=== PATIENT | female | born 1955 | race Caucasian/White ===

== ENCOUNTER 2018-08-08 04:47 | Inpatient (IN) ==
--- NOTE | 2018-07-11 16:12 | PAT Medication Instructions ---
Medication Instructions Date of Service July 11, 2018 Home Medications alprazolam [Xanax] 0.5 mg PO BID PRN aripiprazole [Abilify] 10 mg PO QAM oxycodone 15 mg PO QID sertraline [Zoloft] 200 mg PO HS Take morning of surgery With a small sip of water, OTHERWISE NOTHING TO EAT OR DRINK AFTER MIDNIGHT: alprazolam [Xanax] 0.5 mg PO BID PRN (if needed) aripiprazole [Abilify] 10 mg PO QAM oxycodone 15 mg PO QID (okay to take up to 4 hours prior to surgery if needed) Take evening before surgery alprazolam [Xanax] 0.5 mg PO BID PRN (if needed) oxycodone 15 mg PO QID sertraline [Zoloft] 200 mg PO HS Other Notes If you have any questions please call us at [phone] or [phone] or [phone] or [phone]
--- NOTE | 2018-07-12 09:22 | History & Physical Report ---
Date of Service July 12, 2018 Date of Surgery: 08-08-18 Assessment & Plan (1) Arthritis of knee, right: patient has failed conservative measures, including previous visco injection, she had prior knee arthroscopy in February but pain is now worse, her xrays show complete loss of the joint space medial compartment. is now buckling/giving out. will proceed with right TKA @ [facility] on 08/08/18. all risks and benefits of the procedure were discussed in detail today. History of Present Illness Chief Complaint: right knee pain Primary Care Provider: Emerson Hill DO Ms Mota is a 63 year old female who complains of right knee pain, presents for pre-op evaluation prior to a right total knee replacement at [facility]. she states that the symptoms have been chronic non-traumatic. The symptoms occur intermittently but have become worse. Currently the patient states that the symptoms are moderate-severe. The pain is described as sharp and stabbing. She rates her current pain as 8/10. The symptoms are aggravated by daily activities, first steps while awake, kneeling, movement, sleeping in any position, walking and standing. Lacy states that the symptoms are relieved by no specific activity. she has had prior viscosupplementation, cortisone injection as well as prior knee arthroscopy, Right knee arthroscopic partial medial meniscectomy, Chondroplasty medial femoral condyle and patellofemoral joint. Allergies Allergy/AdvReac Type Severity Reaction Status Date / Time No Known Allergies Allergy Verified 07/04/18 10:35 Home Medications Home Medications Medication Instructions Recorded Confirmed Type alprazolam [Xanax] 0.5 mg PO BID PRN 07/04/18 07/04/18 History aripiprazole [Abilify] 10 mg PO QAM 07/04/18 07/04/18 History oxycodone 15 mg PO QID 07/04/18 07/04/18 History sertraline [Zoloft] 200 mg PO HS 07/04/18 07/04/18 History Past Med/Surg History Medical History Anxiety Depression History of cardiac arrhythmia PT STATES SHE WAS HAVING SOME "SYNCOPAL-LIKE SYMPTOMS" APPROX 3 YEARS AGO. PT HAD A LOOP RECORDER PLACED WHICH DETECTED 2 "VERY SHORT PAUSES" AND NOTHING SINCE. PT FOLLOWS WITH ASHELY BISWAS YEARLY IN CARDIO. Kidney stones Morbid obesity Osteoarthritis Sleep apnea CPAP Surgical History History of arthroscopy KNEE RIGHT (2), LEFT (1) History of hysterectomy History of lithotripsy History of loop recorder 2016. HX OF "PAUSES". NO ISSUES SINCE. History of partial nephrectomy AGE 14. PT HAD POLYNEPHRITIS. Family History Unknown Heart disease Social History Preferred Language: Thai Communication Ability: Effective Team Guide Required: No Beliefs That Will Affect Care: None Current Living Situation: Alone Other Information That Helps Us Care for You: No Feels Safe at Home: Yes Safety Concerns: Feels Safe At This Time Smoking Status: Never smoker Cigarettes Per Day: 0 Do You Dip or Chew Tobacco: No Second Hand Exposure: No Tobacco Cessation Education Requested by Patient: No Hx Alcohol Use: No Hx Substance Use: No Review of Systems Review of Systems: All systems reviewed & are unremarkable except as noted in HPI & below Constitutional: no fever, no chills and no body aches Respiratory: no cough and no dyspnea Cardiovascular: no chest pain, no dyspnea and no orthopnea Gastrointestinal: no abdominal pain, no nausea and no vomiting Musculoskeletal: as per Subjective / HPI Integumentary: no rash and no lesions Physical Exam Physical Exam: Ht: 5ft Wt: 101.7kg BP: 86 Pulse: 82 Constitutional: WD/WN, vitals as above no acute distress Respiratory: normal respiratory effort, lungs clear to auscultation no respiratory distress, no labored breathing and does not use accessory muscles Cardiovascular: RRR, no murmur, no edema Gastrointestinal (Abdomen): normal bowel sounds, soft, nontender, no hepatosplenomegaly Musculoskeletal: Right Knee Exam ambulates with a limp, overall varus alignment, no atrophy or ecchymosis, mild effusion, diffuse tenderness to the knee greatest over medial compartment, negative patellar apprehension , mild crepitation with motion, Patella position neutral, pop's negative, Tiny's - lateral positive, Tiny's - medial positive, Posterior drawer- negative, anterior drawer negative, valgus stress negative, varus stress negative, no extensor lag, pain with active range of motion, less pain with passive painful ROM, Range of motion 0/5/115. No pain with active/passive ROM of ankle. Lower extremity strength normal. Lower extremity neuro-vascular is normal Results & Data Diagnostic Findings Right Knee X-ray on 04/24/18 showing advanced degenerative changes to the right knee, narrowing of the medial compartment and patello-femoral joint with patellar spurring noted, findings showing joint space narrowing of the medial compartment and patello-femoral joint, osteophyte formation and subchondral sclerosis noted. overall varus alignment. no acute bony pathology noted.
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
--- NOTE | 2018-07-12 12:42 | XRay Report ---
XR chest Pre-admission PA/Lat CLINICAL HISTORY: pat preoperative evaluation COMPARISON STUDY: No previous studies for comparison. FINDINGS: The bones soft tissues and hemidiaphragms are normal. The cardiomediastinal silhouette is n ormal. The lungs are clear. The pulmonary vasculature is normal. IMPRESSION: Negative chest. The above report was generated using voice recognition software. It may contain grammatical, syntax or spelling errors. Electronically signed by: Aubrey Enriquez M.D. 07/12/2018 12:41 PM
[2018-07-12 12:52] LABS: Basophils # (auto) 0.02 K/uL (0-0.2); Basophils % (auto) 0.3 %; Eosinophils % (auto) 6.4 %; Hematocrit (blood only) 39.7 % (37-47); Hemoglobin 13.4 g/dL (12.0-16.0); Immature Granulocytes # (auto) 0.01 K/uL (0.00-0.02); Immature Granulocytes % (auto) 0.2 %; Lymphocytes # (auto) 1.82 K/uL (1.2-3.4); Lymphocytes % (auto) 28.9 %; Mean Corpuscular Hgb Conc 33.8 g/dL (32-36); Mean Corpuscular Volume 90.4 fL (80-100); Mean Platelet Volume 9.7 fL (7.4-10.4); Monocytes # (auto) 0.39 K/uL (0.11-0.59); Monocytes % (auto) 6.2 %; Neutrophils # (auto) 3.65 K/uL (1.4-6.5); Platelet Count 218 K/uL (130-400); RDW Coefficient of Variation 13.4 % (11.5-14.5); RDW Standard Deviation 44.2 fL (36.4-46.3); Red Blood Count 4.39 M/uL (4.2-5.4); White Blood Count 6.29 K/uL (4.8-10.8)
[2018-07-12 12:56] LABS: Appearance Urine Clear (Clear); Bacteria Urine Automated Negative (Negative); Bilirubin Urine Negative (Negative); Blood Urine Trace (Negative); Cast Urine Automated 0 /lpf (0-5); Color Urine Yellow; Glucose Urine UA Negative (Negative); Ketones Urine Negative (Negative); Leukocyte Esterase Urine 1+ (Negative); Nitrite Urine Negative (Negative); Protein Urine Negative (Negative); RBC Urine Automated 0-4 /hpf (0-4); Specific Gravity Urine 1.011 (1.000-1.030); Urobilinogen Urine Negative (Negative)
[2018-07-12 13:07] LABS: Partial Thromboplastin Time 26.3 Seconds (21.0-31.0); Prothrombin Time 9.8 Seconds (9.0-12.0)
[2018-07-12 13:11] LABS: Albumin Level 3.8 gm/dl (3.4-5.0); BUN Creatinine Ratio 14.5 (10-20); Calcium 9.1 mg/dl (8.5-10.1); Creatinine Clr Calc Pharmacy 59.1 ml/min; Est GFR (African American) 65.2; Est GFR (Non-African American) 56.2; Potassium 4.5 mmol/L (3.5-5.1)
[2018-07-12 13:44] LABS: Estimated Average Glucose 126 mg/dl
[2018-08-08] MEDS ORDERED: CEFAZOLIN 2000MG 2,000 MG/15 ML SYR IV SCH (06:00)
[2018-08-08] MEDS ORDERED: dexAMETHasone 4 MG TAB PO SCH (06:00)
[2018-08-08] MEDS ORDERED: GABAPENTIN 300 MG x 2 PO SCH (06:00)
[2018-08-08] MEDS ORDERED: METOCLOPRAMIDE HCL 10 MG TABLET PO SCH (06:00)
[2018-08-08] MEDS ORDERED: CeleBREX 200 MG CAP PO SCH (06:00)
[2018-08-08] MEDS ORDERED: LR 500ML BOLUS, THEN 15ML/HR IV SCH (06:00)
[2018-08-08] MEDS ORDERED: FAMOTIDINE 20 MG TAB PO SCH (06:00)
[2018-08-08] MEDS ORDERED: ACETAMINOPHEN 500 MG TAB PO SCH (06:00)
[2018-08-08] MEDS ORDERED: ROPIVACAINE 0.5% HCL/PF 150 MG, BUPIVACAINE 0.5% MPF 30 ML, EPINEPHrine 30MG/30ML (OR U... INFIL SCH (06:00)
[2018-08-08] MEDS ORDERED: TRANEXAMIC ACID 1,000 MG **IV Pre-op IV SCH (06:00)
[2018-08-08] MEDS ORDERED: ROPIVACAINE 0.5% 5 MG/ML 30 ML VIAL ONE (06:27)
[2018-08-08] MEDS ORDERED: BUPIVACAINE 0.5 % 5 MG/1 ML PF 10ML VIAL ONE (06:27)
[2018-08-08] MEDS ORDERED: TRANEXAMIC ACID 1,000 MG **IV Intra-op IV SCH (06:30)
[2018-08-08] MEDS ORDERED: fentaNYL citrate 100 MCG/2 ML VIAL ONE ×2 (06:30→09:02)
[2018-08-08] MEDS ORDERED: MIDAZOLAM HCL 1 MG/ML 2ML VIAL ONE ×3 (06:30→09:01)
[2018-08-08] MEDS ORDERED: LIDOCAINE HCL 2% 2 ML VIAL/AMP(20MG/ML) INFIL ONE (06:34)
[2018-08-08] MEDS ORDERED: PROPOFOL IV EMULSION 10 MG/ML 20 ML VIAL IV ONE ×2 (06:35→09:07)
[2018-08-08] MEDS ORDERED: ONDANSETRON INJ 2 MG/ML 2 ML VIAL ONE (06:35)
[2018-08-08] MEDS ORDERED: fentaNYL citrate 100 MCG/2 ML VIAL IV PRN (06:40)
[2018-08-08] MEDS ORDERED: ePHEDrine sulfate 50 MG/ML AMP IV PRN (06:40)
[2018-08-08] MEDS ORDERED: ONDANSETRON INJ 2 MG/ML 2 ML VIAL IV PRN (06:40)
[2018-08-08] MEDS ORDERED: ATROPINE SULFATE 0.1 MG/ML 10ML SYR IV PRN (06:40)
[2018-08-08] MEDS ORDERED: ORTHO JOINT ANESTHETIC ONE (06:42)
[2018-08-08] MEDS ORDERED: BACITRACIN INJ 50,000 UNIT VIAL ONE (06:43)
--- NOTE | 2018-08-08 07:00 | History & Physical Bridge Note ---
Date of Service August 08, 2018 History & Physical Bridge Note I have examined the patient, reviewed the History & Physical and in the interval since the performance of the History & Physical I have noted the following changes of clinical significance: no changes noted
[2018-08-08] MEDS ORDERED: POVIDONE-IODINE OP SOLN 30 ML BTL OP SCH (08:15)
--- NOTE | 2018-08-08 08:17 | Operative Report ---
Post Operative Report Pre & Post Diagnosis Operation Date: 08/08/18 07:00 Pre-Op Diagnosis: Unilateral Primary Osteoarthritis, Right Knee Post-Op Diagnosis: Unilateral Primary Osteoarthritis, Right Knee Procedure Operation Date: 08/08/18 07:00 Actual Procedures p Right Total Knee Arthroplasty(Right) utilizing Martinez & Nephew non-block journey 2 total knee arthroplasty size 3 femur size 3 tibia size 10 polyethylene size 29 oval patella- Kirk Ott DO Surgeon Kirk Ott DO Nursing Care Partner Aubrey ROGERS Estimated Blood Loss 5 Findings Consistent with Post-Op Diagnosis Patient presents with severe end-stage tricompartmental degenerative joint disease varus alignment subchondral sclerosis marginal osteophytes cystic changes moderate to large effusion with varus alignment right knee no response to conservative management Specimens Bone and cartilage Drains Bone and cartilage Complications none Disposition Accompanied Patient To Recovery: No Disposition: Recovery Room Indications Patient presents with ongoing complaints of pain no response to conservative management physical therapy anti-inflammatories relative rest activity modification corticosteroid injection Visco supplementation bracing patient's intraoperative findings as noted above were confirmed times surgery. Description of Procedure After proper prepping and draping of the Right lower extremity anterior midline incision was made over the region of the extensor extensor mechanism after meticulous hemostasis was obtained and maintained in subcutaneous tissues a medial parapatellar incision was made The patella was subluxed lateralward the medial lateral gutter were cleaned from any hypertrophic synovitis and scar tissue of the distal femoral block was placed and the distal femoral osteotomy cut was made subsequently the chamfers anterior and posterior osteotomy cuts were made utilizing the 4-in-1 block the tibia was subsequently subluxed anteri orward medial and ateral meniscal remnants were excised in their entirety remnants of the anterior and posterior cruciate ligaments were excised in their entirety excellent exposure of the proximal tibia was obtained the tibial osteotomy guide was placed on the proximal tibial osteotomy cut was made once again the knee was irrigated with copious amounts of sterile saline solution the patella was subsequently everted lateralward thickened scar tissue around the patella was removed the patella was subsequently cut utilizing a freehand technique and was drilled prepared for final preparation and placement of patella socially flexion-extension gaps were checked and the equal and symmetric trials were placed to the appropriate femoral and tibial trials with poly-spacer being placed for equal flexion and extension gaps and full range of motion including extension to 0 and flexion to 140 the trial components after having been taken to recovery range of motion was subsequently removed meticulous hemostasis was obtained and maintained subsequently a knee block injection of joint cocktail including ropivacaine 0.5% 150 mg. Bupivacaine 0.5% epinephrine 1-200,030 mL's toradol 30 mg dexamethasone 4 mg ketamine 10 mg clonidine 100 micrograms normal saline solution 30 mg was infiltrated into the soft tissues of the posterior knee medial lateral gutters and periosteal synovium special atten tion was paid to protect neurovascular structures at all times subsequently trial components having been removed the knee was irrigated with sterile saline solution. debris was removed the proximal tibia was subsequently prepared and was made ready for the placement of the tibial component tibial component was also cemented and tamped into position the femoral component was subsequently placed and cemented in the position the patellar component was subsequently cemented in position because hemostasis once again obtained and maintained wound having been thoroughly irrigated with debridement and debridement lavage was performed as well as a medial parapatellar incision closed with #1 Vicryl in interrupted fashion subcutaneous was closed with #2 Vicryl skin was closed with skin clips. PA-C was necessary for prepping and drapping as well as wound closure of deep fascia Sub cutaneous tissue and skin and was necessary for the case. A sterile compressive dressing was placed patient was taken to recovery in stable condition of report dictated by Tru I attest to the content of the Intraoperative Record and any orders documented therein. Any exceptions are noted below. I attest to the content of the Intraoperative Record and any orders documented therein. Any exceptions are noted below.
[2018-08-08] MEDS ORDERED: POVIDONE-IODINE OP SOLN 30 ML BTL OP ONE (08:30)
[2018-08-08] MEDS ORDERED: EPINEPHrine INJ 1 MG/ML AMP ONE (09:07)
[2018-08-08] MEDS ORDERED: PHENYLEPHRINE 100MCG/ML 5ML SYR ONE (09:07)
--- NOTE | 2018-08-08 09:25 | Anesthesiology Progress Note ---
Date of Service August 08, 2018 Anesthesia Post Procedure Vital Signs Vital Signs: Temp Pulse Resp BP Pulse Ox 08/08/18 09:15 75 15 109/71 94 08/08/18 09:05 77 16 112/63 95 08/08/18 08:55 98.1 F 78 20 126/67 100 08/08/18 05:31 98.1 F 90 20 144/85 H 95 Transfer of Care Handoff Completed per policy Notes Mental Status: alert / awake / arousable and participated in evaluation Patient Amnestic to Procedure: Yes Nausea / Vomiting: adequately controlled Pain: adequately controlled Airway Patency, RR, SpO2: stable & adequate BP & HR: stable & adequate Hydration State: stable & adequate Neuraxial Anesthesia: was administered and sensory block is resolving Anesthetic Complications: no major complications apparent and Pt Satisfied with anesthetic care
--- NOTE | 2018-08-08 09:31 | XRay Report ---
XR knee RT 2V routine CLINICAL HISTORY: 63 years-old Female presenting with Surgical Post Op. TECHNIQUE: Frontal and crosstable lateral views the right knee were obtained. COMPARISON: None. FINDINGS: Postsurgical changes of total right knee arthroplasty with patellar resurfacing. Expected intra-artic ular and surrounding soft tissue emphysema. A surgical drain is in place. No periprosthetic lucency o r fracture. Alignment is acceptable. Suboptimal visualization of the patellar arthroplasty component due to positioning of the crosstable lateral view. IMPRESSION: Expected postsurgical appearance status post total right knee arthroplasty with patellar resurfacing. Electronically signed by: Sean Vyas M.D. 08/08/2018 9:30 AM
[2018-08-08] MEDS ORDERED: MAGNESIUM HYDROXIDE SUSP 30 ML UDC PO PRN (10:09)
[2018-08-08] MEDS ORDERED: METOCLOPRAMIDE HCL INJ 5 MG/ML 2 ML VIAL IV PRN (10:09)
[2018-08-08] MEDS ORDERED: ALUMINUM/MAGNESIUM SUSP 30 ML UDC PO PRN (10:09)
[2018-08-08] MEDS ORDERED: NALOXONE HCL 0.4 MG/1 ML VIAL/CARP IV PRN (10:09)
[2018-08-08] MEDS ORDERED: BISACODYL 10 MG SUPP PR PRN (10:09)
[2018-08-08] MEDS: SODIUM CHLORIDE 0.9% 1000ML 1,000 ML IV SCH ×2 (11:04→22:36)
[2018-08-08] MEDS: KETOROLAC TROMETHAMINE 15 MG/ML VIAL IV SCH ×3 (11:30→22:38)
[2018-08-08] MEDS: ASPIRIN 81 MG ECTAB PO SCH ×2 (11:30→20:27)
[2018-08-08] MEDS: CEFAZOLIN 2000MG 2,000 MG/15 ML SYR IV SCH ×2 (14:09→22:37)
[2018-08-08] MEDS: ACETAMINOPHEN 500 MG TAB PO SCH ×2 (14:09→21:03)
[2018-08-08] MEDS: ONDANSETRON INJ 2 MG/ML 2 ML VIAL IV PRN ×2 (15:36→23:17)
[2018-08-08] MEDS: OXYCODONE HCL IR 5 MG TAB (IMMEDIATE RELEASE) PO PRN (17:21)
[2018-08-08] MEDS: HYDROmorphone INJ 1 MG/ML SYRINGE IV PRN (18:32)
[2018-08-08] MEDS: SERTRALINE HCL 100 MG TABLET PO SCH (20:27)
[2018-08-08] MEDS: SENNA 8.6 MG TAB PO SCH (20:28)
[2018-08-08] MEDS: DOCUSATE SODIUM 100 MG CAP PO SCH (20:28)
[2018-08-09] MEDS: OXYCODONE HCL IR 5 MG TAB (IMMEDIATE RELEASE) PO PRN ×4 (03:22→20:59)
[2018-08-09] MEDS: ACETAMINOPHEN 500 MG TAB PO SCH ×3 (05:49→20:59)
[2018-08-09] MEDS: KETOROLAC TROMETHAMINE 15 MG/ML VIAL IV SCH (05:49)
[2018-08-09 05:51] LABS: Hematocrit (blood only) 35.5 % (37-47); Hemoglobin 11.6 g/dL (12.0-16.0); Mean Corpuscular Hgb Conc 32.7 g/dL (32-36); Mean Corpuscular Volume 91.3 fL (80-100); Mean Platelet Volume 9.3 fL (7.4-10.4); Platelet Count 165 K/uL (130-400); RDW Coefficient of Variation 13.5 % (11.5-14.5); RDW Standard Deviation 44.9 fL (36.4-46.3); Red Blood Count 3.89 M/uL (4.2-5.4); White Blood Count 9.57 K/uL (4.8-10.8)
[2018-08-09 06:25] LABS: BUN Creatinine Ratio 18.4 (10-20); Calcium 8.7 mg/dl (8.5-10.1); Creatinine Clr Calc Pharmacy 55.9 ml/min; Est GFR (African American) 62.3; Est GFR (Non-African American) 53.8; Potassium 4.1 mmol/L (3.5-5.1)
--- NOTE | 2018-08-09 07:20 | Anesthesiology Progress Note ---
Date of Service August 09, 2018 Anesthesia Post Procedure Vital Signs Vital Signs: Temp Pulse Pulse Pulse Pulse Resp BP 08/09/18 03:05 36.5 C 71 16 106/69 08/08/18 22:56 36.3 C L 60 16 114/71 08/08/18 21:02 68 113/69 08/08/18 20:30 36.3 C L 64 20 94/55 L 08/08/18 15:32 36.4 C L 68 20 132/88 08/08/18 12:57 36.4 C L 77 16 118/68 08/08/18 11:48 36.5 C 74 16 119/74 08/08/18 10:44 36.5 C 78 16 142/73 H 08/08/18 10:22 36.7 C 70 16 120/73 08/08/18 09:50 36.8 C 78 16 121/63 08/08/18 09:35 37.5 C 76 20 112/75 08/08/18 09:25 37.5 C 74 22 117/73 08/08/18 09:15 75 15 109/71 08/08/18 09:05 77 16 112/63 08/08/18 08:55 36.7 C 78 20 126/67 Pulse Ox 08/09/18 03:05 94 08/08/18 22:56 92 08/08/18 21:02 08/08/18 20:30 93 08/08/18 15:32 96 08/08/18 12:57 96 08/08/18 11:48 96 08/08/18 10:44 96 08/08/18 10:22 95 08/08/18 09:50 95 08/08/18 09:35 94 08/08/18 09:25 94 08/08/18 09:15 94 08/08/18 09:05 95 08/08/18 08:55 100 Pain Intensity Right Knee: Pain Intensity: 3 Notes Mental Status: alert / awake / arousable and participated in evaluation Nausea / Vomiting: adequately controlled Pain: adequately controlled Airway Patency, RR, SpO2: stable & adequate BP & HR: stable & adequate Hydration State: stable & adequate Neuraxial Anesthesia: sensory block resolved Anesthetic Complications: Pt Satisfied with anesthetic care
--- NOTE | 2018-08-09 07:40 | Orthopedic Progress Note ---
Date of Service August 09, 2018 Assessment & Plan (1) Arthritis of knee, right: Postop day 1 status post right TKA. PT/OT protocols. Weightbearing as tolerated. DVT prophylaxis with aspirin twice daily, ARIEL Peter. Pain management with acetaminophen, oxycodone, hydromorphone, Toradol. DC planning-patient is planning for home health services upon discharge. Subjective Postop day 1 status post right total knee arthroplasty. Patient is currently lying in bed awake and alert. She states that she is been having some pain control issues through the night. She also states she is been somewhat lightheaded and dizzy. She is not currently dizzy at this time. She is having some pain in the knee. Denies calf tenderness, short shortness of breath, chest pain. No other complaints at this time. Physical Exam Physical Exam: Dressings are clean, dry, and intact. Calves are soft nontender. Neurovascular is intact. Toes are mobile. Hemovac drainage was 125 cc from the previous shift. Results & Data Vital Signs (Past 12 Hours) Vital Signs Temp Pulse Pulse Pulse Resp BP Pulse Ox 08/09/18 07:34 36.6 C 69 16 135/65 94 08/09/18 03:05 36.5 C 71 16 106/69 94 08/08/18 22:56 36.3 C L 60 16 114/71 92 08/08/18 21:02 68 113/69 08/08/18 20:30 36.3 C L 64 20 94/55 L 93 Laboratory Results Laboratory Results WBC 9.57 K/uL (4.8-10.8) 08/09/18 05:32 RBC 3.89 M/uL (4.2-5.4) L 08/09/18 05:32 Hgb 11.6 g/dL (12.0-16.0) L 08/09/18 05:32 Hct 35.5 % (37-47) L 08/09/18 05:32 MCV 91.3 fL (80-100) 08/09/18 05:32 MCH 29.8 pg (25-34) 08/09/18 05:32 MCHC 32.7 g/dL (32-36) 08/09/18 05:32 RDW Std Deviation 44.9 fL (36.4-46.3) 08/09/18 05:32 RDW Coeff of Heather 13.5 % (11.5-14.5) 08/09/18 05:32 Plt Count 165 K/uL (130-400) 08/09/18 05:32 MPV 9.3 fL (7.4-10.4) 08/09/18 05:32 Immature Gran % (Auto) 0.2 % 07/12/18 10:50 Neut % (Auto) 58.0 % 07/12/18 10:50 Lymph % (Auto) 28.9 % 07/12/18 10:50 [place] % (Auto) 6.2 % 07/12/18 10:50 Eos % (Auto) 6.4 % 07/12/18 10:50 Baso % (Auto) 0.3 % 07/12/18 10:50 Immature Gran # (Auto) 0.01 K/uL (0.00-0.02) 07/12/18 10:50 Neut # (Auto) 3.65 K/uL (1.4-6.5) 07/12/18 10:50 Lymph # (Auto) 1.82 K/uL (1.2-3.4) 07/12/18 10:50 [place] # (Auto) 0.39 K/uL (0.11-0.59) 07/12/18 10:50 Eos # (Auto) 0.40 K/uL (0-0.5) 07/12/18 10:50 Baso # (Auto) 0.02 K/uL (0-0.2) 07/12/18 10:50 PT 9.8 Seconds (9.0-12.0) 07/12/18 10:50 INR 1.0 (0.9-1.1) 07/12/18 10:50 APTT 26.3 Seconds (21.0-31.0) 07/12/18 10:50 PTT Ratio 1.0 07/12/18 10:50 Sodium 145 mmol/L (136-145) 08/09/18 05:32 Potassium 4.1 mmol/L (3.5-5.1) 08/09/18 05:32 Chloride 114 mmol/L (98-107) H 08/09/18 05:32 Carbon Dioxide 26 mmol/L (21-32) 08/09/18 05:32 Anion Gap 6.0 (3-11) 08/09/18 05:32 BUN 20 mg/dl (7-18) H 08/09/18 05:32 Creatinine 1.10 mg/dl (0.6-1.2) 08/09/18 05:32 Est Cr Clr Drug Dosing 55.9 ml/min 08/09/18 05:32 Est GFR ( Amer) 62.3 08/09/18 05:32 Est GFR (Non-Af Amer) 53.8 08/09/18 05:32 BUN/Creatinine Ratio 18.4 (10-20) 08/09/18 05:32 Glucose 122 mg/dl (70-99) H 08/09/18 05:32 Estimat Average Glucose 126 mg/dl 07/12/18 10:50 Hemoglobin A1c 6.0 % (4.5-5.6) H 07/12/18 10:50 Calcium 8.7 mg/dl (8.5-10.1) 08/09/18 05:32 Albumin 3.8 gm/dl (3.4-5.0) 07/12/18 10:50 Urine Color Yellow 07/12/18 Unknown Urine Appearance Clear (Clear) 07/12/18 Unknown Urine pH 7.0 (4.5-7.5) 07/12/18 Unknown Ur Specific [place] 1.011 (1.000-1.030) 07/12/18 Unknown Urine Protein Negative (Negative) 07/12/18 Unknown Urine Glucose (UA) Negative (Negative) 07/12/18 Unknown Urine Ketones Negative (Negative) 07/12/18 Unknown Urine Blood Trace (Negative) H 07/12/18 Unknown Urine Nitrite Negative (Negative) 07/12/18 Unknown Urine Bilirubin Negative (Negative) 07/12/18 Unknown Urine Urobilinogen Negative (Negative) 07/12/18 Unknown Ur Leukocyte Esterase 1+ (Negative) H 07/12/18 Unknown Urine WBC (Auto) 1-5 /hpf (0-5) 07/12/18 Unknown Urine RBC (Auto) 0-4 /hpf (0-4) 07/12/18 Unknown U Hyaline Cast (Auto) 0 /lpf (0-5) 07/12/18 Unknown U Epithel Cells (Auto) 5-10 /lpf (0-5) H 07/12/18 Unknown Urine Bacteria (Auto) Negative (Negative) 07/12/18 Unknown Blood Type O Positive 07/12/18 10:50 Antibody Screen NEGATIVE 07/12/18 10:50
[2018-08-09] MEDS: HYDROmorphone INJ 1 MG/ML SYRINGE IV PRN ×4 (07:52→23:05)
[2018-08-09] MEDS: DOCUSATE SODIUM 100 MG CAP PO SCH ×2 (08:27→20:16)
[2018-08-09] MEDS: ARIPiprazole 10 MG TAB PO SCH (08:27)
[2018-08-09] MEDS: MULTIVITAMIN TAB PO SCH (08:27)
[2018-08-09] MEDS: ASPIRIN 81 MG ECTAB PO SCH ×2 (08:27→20:17)
[2018-08-09] MEDS: ONDANSETRON INJ 2 MG/ML 2 ML VIAL IV PRN (10:01)
[2018-08-09] MEDS ORDERED: PROMETHAZINE HCL 25 MG TAB PO PRN (13:39)
[2018-08-09] MEDS ORDERED: MECLIZINE HCL 25 MG TAB PO PRN (14:23)
[2018-08-09] MEDS: SENNA 8.6 MG TAB PO SCH (20:16)
[2018-08-09] MEDS: CeleBREX 200 MG CAP PO SCH (20:17)
[2018-08-09] MEDS: SERTRALINE HCL 100 MG TABLET PO SCH (20:17)
[2018-08-10] MEDS: HYDROmorphone INJ 1 MG/ML SYRINGE IV PRN (03:39)
[2018-08-10] MEDS: ACETAMINOPHEN 500 MG TAB PO SCH ×3 (06:20→21:35)
--- NOTE | 2018-08-10 06:52 | Orthopedic Progress Note ---
Date of Service August 10, 2018 Assessment & Plan (1) Arthritis of knee, right: Postop day 2 status post right TKA. PT/OT protocols. Weightbearing as tolerated. DVT prophylaxis with aspirin twice daily, SCDs, ARIEL turner. Pain management with acetaminophen, oxycodone, hydromorphone, Toradol. DC planning-patient is planning for home health services upon discharge, will recheck after PT today Subjective Postop day 2 status post right total knee arthroplasty. Patient is currently lying in bed awake and alert. Denies calf tenderness, short shortness of breath, chest pain. No other complaints at this time. admits to h/o vertigo; Physical Exam Physical Exam: Vital Signs Temp Pulse Pulse Resp BP Pulse Ox Pulse Ox 08/09/18 23:11 36.7 C 83 16 159/80 H 91 08/09/18 15:24 36.9 C 77 20 130/77 94 08/09/18 11:41 36.4 C L 70 16 116/74 94 08/09/18 11:30 97 08/09/18 07:34 36.6 C 69 16 135/65 94 Intake and Output 08/09/18 08/09/18 08/10/18 14:59 22:59 06:59 Intake Total 500 / 850 250 / 850 100 / 850 Output Total 100 / 300 100 / 300 100 / 300 Balance 400 / 550 150 / 550 0 / 550 Intake: Oral 500 / 850 250 / 850 100 / 850 Output: Drain Output 100 / 300 100 / 300 100 / 300 Right Knee Hem ovac 100 / 300 100 / 300 100 / 300 Other: # Unmeasured Voi ds 1 Constitutional: WD/WN, vitals as above no acute distress Musculoskeletal: NVDI, calf SNT, negative anamaria sign. DP palpable, able to wiggle toes/ankle movement without difficulty. MITA dressing clean dry and intact. expected post-operative bruising noted. Psychiatric: A+Ox3, euthymic affect Results & Data Vital Signs (Past 12 Hours) Vital Signs Temp Pulse Resp BP Pulse Ox 08/09/18 23:11 36.7 C 83 16 159/80 H 91 Laboratory Results Laboratory Results WBC 9.57 K/uL (4.8-10.8) 08/09/18 05:32 RBC 3.89 M/uL (4.2-5.4) L 08/09/18 05:32 Hgb 11.6 g/dL (12.0-16.0) L 08/09/18 05:32 Hct 35.5 % (37-47) L 08/09/18 05:32 MCV 91.3 fL (80-100) 08/09/18 05:32 MCH 29.8 pg (25-34) 08/09/18 05:32 MCHC 32.7 g/dL (32-36) 08/09/18 05:32 RDW Std Deviation 44.9 fL (36.4-46.3) 08/09/18 05:32 RDW Coeff of Heather 13.5 % (11.5-14.5) 08/09/18 05:32 Plt Count 165 K/uL (130-400) 08/09/18 05:32 MPV 9.3 fL (7.4-10.4) 08/09/18 05:32 Immature Gran % (Auto) 0.2 % 07/12/18 10:50 Neut % (Auto) 58.0 % 07/12/18 10:50 Lymph % (Auto) 28.9 % 07/12/18 10:50 [place] % (Auto) 6.2 % 07/12/18 10:50 Eos % (Auto) 6.4 % 07/12/18 10:50 Baso % (Auto) 0.3 % 07/12/18 10:50 Immature Gran # (Auto) 0.01 K/uL (0.00-0.02) 07/12/18 10:50 Neut # (Auto) 3.65 K/uL (1.4-6.5) 07/12/18 10:50 Lymph # (Auto) 1.82 K/uL (1.2-3.4) 07/12/18 10:50 [place] # (Auto) 0.39 K/uL (0.11-0.59) 07/12/18 10:50 Eos # (Auto) 0.40 K/uL (0-0.5) 07/12/18 10:50 Baso # (Auto) 0.02 K/uL (0-0.2) 07/12/18 10:50 PT 9.8 Seconds (9.0-12.0) 07/12/18 10:50 INR 1.0 (0.9-1.1) 07/12/18 10:50 APTT 26.3 Seconds (21.0-31.0) 07/12/18 10:50 PTT Ratio 1.0 07/12/18 10:50 Sodium 145 mmol/L (136-145) 08/09/18 05:32 Potassium 4.1 mmol/L (3.5-5.1) 08/09/18 05:32 Chloride 114 mmol/L (98-107) H 08/09/18 05:32 Carbon Dioxide 26 mmol/L (21-32) 08/09/18 05:32 Anion Gap 6.0 (3-11) 08/09/18 05:32 BUN 20 mg/dl (7-18) H 08/09/18 05:32 Creatinine 1.10 mg/dl (0.6-1.2) 08/09/18 05:32 Est Cr Clr Drug Dosing 55.9 ml/min 08/09/18 05:32 Est GFR ( Amer) 62.3 08/09/18 05:32 Est GFR (Non-Af Amer) 53.8 08/09/18 05:32 BUN/Creatinine Ratio 18.4 (10-20) 08/09/18 05:32 Glucose 122 mg/dl (70-99) H 08/09/18 05:32 Estimat Average Glucose 126 mg/dl 07/12/18 10:50 Hemoglobin A1c 6.0 % (4.5-5.6) H 07/12/18 10:50 Calcium 8.7 mg/dl (8.5-10.1) 08/09/18 05:32 Albumin 3.8 gm/dl (3.4-5.0) 07/12/18 10:50 Urine Color Yellow 07/12/18 Unknown Urine Appearance Clear (Clear) 07/12/18 Unknown Urine pH 7.0 (4.5-7.5) 07/12/18 Unknown Ur Specific [place] 1.011 (1.000-1.030) 07/12/18 Unknown Urine Protein Negative (Negative) 07/12/18 Unknown Urine Glucose (UA) Negative (Negative) 07/12/18 Unknown Urine Ketones Negative (Negative) 07/12/18 Unknown Urine Blood Trace (Negative) H 07/12/18 Unknown Urine Nitrite Negative (Negative) 07/12/18 Unknown Urine Bilirubin Negative (Negative) 07/12/18 Unknown Urine Urobilinogen Negative (Negative) 07/12/18 Unknown Ur Leukocyte Esterase 1+ (Negative) H 07/12/18 Unknown Urine WBC (Auto) 1-5 /hpf (0-5) 07/12/18 Unknown Urine RBC (Auto) 0-4 /hpf (0-4) 07/12/18 Unknown U Hyaline Cast (Auto) 0 /lpf (0-5) 07/12/18 Unknown U Epithel Cells (Auto) 5-10 /lpf (0-5) H 07/12/18 Unknown Urine Bacteria (Auto) Negative (Negative) 07/12/18 Unknown Hepatitis C Ab Screen Neg (Neg) 08/09/18 05:32 Blood Type O Positive 07/12/18 10:50 Antibody Screen NEGATIVE 07/12/18 10:50 Diagnostic Findings XR knee RT 2V routine CLINICAL HISTORY: 63 years-old Female presenting with Surgical Post Op. TECHNIQUE: Frontal and crosstable lateral views the right knee were obtained. COMPARISON: None. FINDINGS: Postsurgical changes of total right knee arthroplasty with patellar resurfacing. Expected intra-articular and surrounding soft tissue emphysema. A surgical drain is in place. No periprosthetic lucency or fracture. Alignment is acceptable. Suboptimal visualization of the patellar arthroplasty component due to positioning of the crosstable lateral view. IMPRESSION: Expected postsurgical appearance status post total right knee arthroplasty with patellar resurfacing.
[2018-08-10] MEDS: OXYCODONE HCL IR 5 MG TAB (IMMEDIATE RELEASE) PO PRN ×4 (07:56→21:34)
[2018-08-10] MEDS: ONDANSETRON INJ 2 MG/ML 2 ML VIAL IV PRN ×2 (07:56→15:55)
[2018-08-10] MEDS: ARIPiprazole 10 MG TAB PO SCH (08:00)
[2018-08-10] MEDS: CeleBREX 200 MG CAP PO SCH ×2 (08:00→21:35)
[2018-08-10] MEDS: DOCUSATE SODIUM 100 MG CAP PO SCH ×2 (08:00→21:34)
[2018-08-10] MEDS: ASPIRIN 81 MG ECTAB PO SCH ×2 (08:00→21:34)
[2018-08-10] MEDS: MULTIVITAMIN TAB PO SCH (08:00)
[2018-08-10] MEDS ORDERED: KETOROLAC TROMETHAMINE 15 MG/ML VIAL IV ONE (14:42)
[2018-08-10] MEDS: ALPRAZolam 0.5 MG TABLET PO PRN (20:32)
[2018-08-10] MEDS: SERTRALINE HCL 100 MG TABLET PO SCH (21:35)
[2018-08-10] MEDS: SENNA 8.6 MG TAB PO SCH (21:35)
[2018-08-11] MEDS: OXYCODONE HCL IR 5 MG TAB (IMMEDIATE RELEASE) PO PRN ×2 (03:50→08:02)
[2018-08-11] MEDS: ACETAMINOPHEN 500 MG TAB PO SCH (05:53)
--- NOTE | 2018-08-11 08:04 | Orthopedic Progress Note ---
Date of Service August 11, 2018 Assessment & Plan (1) Arthritis of knee, right: Postop day 3 status post right TKA. PT/OT protocols. Weightbearing as tolerated. DVT prophylaxis with aspirin twice daily, ARIEL Peter. Pain management with acetaminophen, oxycodone, hydromorphone, Toradol. DC planning-patient is planning for home health services upon discharge. Plan for dc to home. Subjective Postop day 3 status post right total knee arthroplasty. Patient's discharge was held yesterday due to some pain control issues. She was ordered a one-time dose of Toradol 15 mg IV and continued on her regular pain regimen. This morning she is sitting up in her chair at the bedside and appears comfortable. She has no complaints at this time. Pain appears controlled. She denies shortness of breath, chest pain, lightheadedness. We discussed being discharged today and the patient feels she is ready to go home today. Physical Exam Physical Exam: MITA dressing is C/D/I. No overt drainage noted. Continues to function well. Calves are soft,NT. NV intact. Toes are mobile. Results & Data Vital Signs (Past 12 Hours) Vital Signs Temp Pulse Pulse Resp BP Pulse Ox 08/11/18 07:13 36.8 C 81 16 134/87 94 08/10/18 23:01 36.8 C 82 16 129/80 91
[2018-08-11] MEDS: ALPRAZolam 0.5 MG TABLET PO PRN (08:06)
[2018-08-11] MEDS: ARIPiprazole 10 MG TAB PO SCH (08:06)
[2018-08-11] MEDS: CeleBREX 200 MG CAP PO SCH (08:07)
[2018-08-11] MEDS: DOCUSATE SODIUM 100 MG CAP PO SCH (08:07)
[2018-08-11] MEDS: ASPIRIN 81 MG ECTAB PO SCH (08:07)
[2018-08-11] MEDS: MULTIVITAMIN TAB PO SCH (08:08)
--- NOTE | 2018-08-13 07:42 | Discharge Summary ---
Date of Service date of admission: August 08, 2018 date of discharge: 08/11/18 Admission HPI Per Admitting Provider Ms Mota is a 63 year old female who complains of right knee pain, presents for pre-op evaluation prior to a right total knee replacement at [facility]. she states that the symptoms have been chronic non-traumatic. The symptoms occur intermittently but have become worse. Currently the patient states that the symptoms are moderate-severe. The pain is described as sharp and stabbing. She rates her current pain as 8/10. The symptoms are aggravated by daily activities, first steps while awake, kneeling, movement, sleeping in any position, walking and standing. Lacy states that the symptoms are relieved by no specific activity. she has had prior viscosupplementation, cortisone injection as well as prior knee arthroscopy, Right knee arthroscopic partial medial meniscectomy, Chondroplasty medial femoral condyle and patellofemoral joint. Principal Diagnosis right knee osteoarthritis Discharge Exam Vital Signs Temp 36.8 C 08/11/18 09:28 Pulse 76 08/11/18 09:28 Resp 16 08/11/18 09:28 BP 146/84 H 08/11/18 09:28 Pulse Ox 94 08/11/18 09:28 Musculoskeletal NVDI, calf SNT, negative anamaria sign. DP palpable, able to wiggle toes/ankle movement without difficulty. MITA dressing clean dry and intact. expected post- operative bruising noted. Discharge Data Allergies Allergy/AdvReac Type Severity Reaction Status Date / Time No Known Allergies Allergy Verified 08/08/18 05:22 Consultations 08/08/18 10:09 Consult Case Management - Discharge Planning Routine Procedures Performed Operation Date: 08/08/18 07:00 Actual Procedures p Right Total Knee Arthroplasty(Right) - Kirk Ott DO Ordered Studies 08/08/18 05:00 US - OR guided needle placemen Routine Hospital Course (1) Arthritis of knee, right: Postop day 3 status post right TKA. PT/OT protocols. Weightbearing as tolerated. DVT prophylaxis with aspirin twice daily, SCDs, ARIEL turner. Pain management with acetaminophen, oxycodone, hydromorphone, Toradol. DC planning-patient is planning for home health services upon discharge. Plan for dc to home. Total Time Total Time Spent Total Time Spent (In Minutes): 20 Total Time Includes: Examination of the Patient, Discharge Planning and Medication Reconciliation Discharge Plan Discharge Items Patient Disposition: Home - Home Health Services Reason For Visit: Unilateral Primary Osteoarthritis, Right Knee Discharge Diagnosis: right total knee replacement Condition: Good Discharge Goals: Decrease discomfort, Improve function and Increase independence Activity: Per 'Additional Instructions' section Lifting: Wait until after follow-up appointment Driving/Machine Use Comment: wait until cleared by your surgeon Weightbearing: Right weightbearing Weightbearing Comment: WBAT with walker Non-emergency contact: Primary Care Provider and Surgeon Call non-emergency contact if: you have any medication questions, your temperature is above 101, your wound has increased redness and your wound has increased drainage Follow-up/Referrals: Emerson Hill DO [Primary Care Provider] - Diet: Regular Addtl Provider Instructions: ACTIVITY RECOMMENDATIONS: SELF CARE INSTRUCTIONS AFTER TOTAL KNEE REPLACEMENT A. You may need to continue a physical therapy program after discharge from the hospital. There are several options available to you. Your doctor will assist you in selecting the best one for you. 1. An out-patient facility 2 to 3 times a week for therapy or home therapy. 2. Continue working on all exercises taught to you in the hospital. Your goals should be to increase bending of your knee to 90 degrees and beyond and to fully straighten your knee. B. You may progress at your own pace from walking with a walker or crutches to a cane; then to no assistive devices. C. Make walking a part of your daily routine. Be up as much as comfortable with rest periods throughout the day. Rest with leg elevation is very important. Use the ice wrap frequently for the first 3-4 weeks. D. There are no restrictions on activities. You may ride in a car, shop, participate in collections director and all social activities. E. Wear the long elastic stockings (ARIEL hose) 20 hours a day for 2 weeks after surgery. They can be removed several times a day for laundering and for a bath. F. You may shower, no tub baths until cleared by your doctor. SPECIAL CARE INSTRUCTIONS: VERY IMPORTANT TO READ AND REVIEW A. There are a few signs you need to watch for after you are home. Call [facility] if you notice any of the followin. Increased severe knee pain. Some pain is expected especially when you exercise. 2. Increased swelling in your leg or knee; pain or swelling of the calf muscle in either lower leg. 3. Any fluid drainage from the incision. 4. Shortness of breath or chest pain. B. Please call [facility] at if you have any concerns or questions about your operation or recovery. The doctor or his nurse will return your call promptly. C. You must take antibiotics before dental work, bladder, bowel or other surgery. Your doctor will provide you with a permanent care to carry describing this precaution. IMPORTANT: * REMEMBER TO TAKE ASPIRIN, 81 MG, TWICE DAILY FOR 4 WEEKS UNLESS OTHERWISE DIRECTED. THIS IS YOUR BLOOD THINNER. * HIGH RISK PATIENTS MAY BE PRESCRIBED A STRONGER BLOOD THINNER. THIS WILL BE PROVIDED AT DISCHARGE. * CALL IF INCREASED PAIN, REDNESS, DRAINAGE OR FEVER GREATER THAT 101. * WEAR ARIEL HOSE 20 HOURS PER DAY FOR 2 WEEKS. * MITA Dressing- This is a large suction dressing covering your incision. Th is will help pull any excess drainage from the wound and allow your incision to heal properly. You may shower with this if you can keep the unit outside of the shower. If any bleeding or leakage is noted please call your doctor's office. This will remain on your incision for 7 days and then should be removed. This can be done yourself or by the home nursing staff if applicable. The entire uni t is disposable once removed. Once removed, keep incision clean and dry. If redness or drainage is noted, please call your surgeon. DERMABOND Prineo- This is a mesh tape dressing that is covered with glue. It should remain in place until the incision is properly healed, usually 10-14 days. This dressing is designed to naturally slough off. You may trim the excess mesh tape as it peels off. Incision may be briefly wet in a shower. Dry immediately by blotting with a clean, dry towel. Do not bath or swim until instructed by your doctor. Do not scratch, rub, or pick at the dressing. Do not apply any topical ointments or lotions until dressing is completely removed and/or instructed by your doctor. There may be a small piece of suture material at one end of your incision. Do not pull or trim this. If it is bothersome or catching on clothing, you may cover it with a band-aid. FOLLOW UP VISIT: If appointment is not already scheduled: Please call [facility] to make a follow-up appointment for 2 weeks after your surgery at . Prescriptions: New celecoxib [Celebrex] 200 mg Capsule 200 mg PO BID 30 Days Qty: 60 RF: 0 aspirin [Ecotrin Low Strength] 81 mg Tablet,Delayed Release (Dr/Ec) 81 mg PO BID 30 Days Qty: 60 RF: 0 acetaminophen [Tylenol Extra Strength] 500 mg Tablet 1,000 mg PO Q8 14 Days Qty: 84 RF: 0 oxycodone 5 mg Tablet 5 - 10 mg PO Q6H PRN (Reason: pain) Qty: 30 RF: 0 docusate sodium 100 mg Capsule 100 mg PO BID 10 Days Qty: 20 RF: 0 cefadroxil 500 mg capsule 500 mg PO BID 14 Days Qty: 28 RF: 0 Continued sertraline [Zoloft] 100 mg Tablet 200 mg PO HS RF: 0 alprazolam [Xanax] 0.5 mg Tablet 0.5 mg PO BID PRN (Reason: Anxiety) RF: 0 aripiprazole [Abilify] 10 mg Tablet 10 mg PO QAM RF: 0 Discontinued oxycodone 15 mg Tablet 15 mg PO QID RF: 0 Stand-Alone Forms: [employer], Opioid Pain Management [employer]/Other Patient Handouts: Prediabetes, Diabetes Meal Planning Discharge Orders: Discharge Order (Routine); Ordered 08/11/18 Ordered By: Sean Kwok Admission Data Admit Date/Time: 08/08/18 09:52 Attending Provider: Kirk Ott Admit Provider: Kirk Ott Primary Care Provider: Emerson Hill Service: Surgical Services Other Interventions: Discharge Summary Assessment (RN) Last Done: 08/11/18 09:28 Pending Studies at Discharge: No DC Date/Time DO NOT enter until pt leaves facility: 08/11/18 10:45
== END 2018-08-11 10:45 | disposition home health service (06) | DRG 470 ==
LOC: ASU 04:47 → 3E 09:52

== ENCOUNTER 2018-09-27 07:23 | Inpatient (IN) ==
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
--- NOTE | 2018-09-21 10:02 | PAT Medication Instructions ---
Medication Instructions Date of Service September 21, 2018 Home Medications Medication Instructions Recorded oxycodone 5 - 10 mg PO Q6H PRN #30 tab 08/10/18 alprazolam [Xanax] 0.5 mg PO BID PRN aripiprazole [Abilify] 10 mg PO QAM sertraline [Zoloft] 200 mg PO HS oxycodone 5 - 10 mg PO Q6H PRN aspirin 81 mg PO BID ASK your prescriber and surgeon aspirin 81 mg PO BID Take morning of surgery With a small sip of water, OTHERWISE NOTHING TO EAT OR DRINK AFTER MIDNIGHT: alprazolam [Xanax] 0.5 mg PO BID PRN (if needed) aripiprazole [Abilify] 10 mg PO QAM oxycodone 5 - 10 mg PO Q6H PRN (okay to take up to 4 hours prior to surgery if needed) Take evening before surgery alprazolam [Xanax] 0.5 mg PO BID PRN (if needed) sertraline [Zoloft] 200 mg PO HS oxycodone 5 - 10 mg PO Q6H PRN (if needed) Other Notes If you have any questions please call us at [phone] or [phone] or [phone] or [phone]
[2018-09-21 10:56] LABS: Appearance Urine Turbid (Clear); Bacteria Urine Automated 4+ (Negative); Bilirubin Urine Negative (Negative); Blood Urine 2+ (Negative); Color Urine Dark Yellow; Epithelial Cell Urine Auto >30 /lpf (0-5); Glucose Urine UA Negative (Negative); Ketones Urine Negative (Negative); Leukocyte Esterase Urine 3+ (Negative); Nitrite Urine Positive (Negative); Protein Urine 1+ (Negative); Specific Gravity Urine 1.015 (1.000-1.030); Urobilinogen Urine Negative (Negative); WBC Urine Automated >30 /hpf (0-5)
[2018-09-21 11:00] LABS: Partial Thromboplastin Ratio 1.1; Partial Thromboplastin Time 29.1 Seconds (21.0-31.0); Prothrombin Time 10.5 Seconds (9.0-12.0)
[2018-09-21 13:34] LABS: Estimated Average Glucose 117 mg/dl; Hemoglobin A1C 5.7 % (4.5-5.6)
[~2018-09-27 07:23] MED LIST: ACETAMINOPHEN 500 MG TAB PO SCH; BUPIVACAINE 0.25% 30 ML VIAL ONE; BUPIVACAINE 0.5 % 5 MG/1 ML PF 10ML VIAL ONE; CEFAZOLIN 2000MG 2,000 MG/15 ML SYR IV SCH; CeleBREX 200 MG CAP PO SCH; FAMOTIDINE 20 MG TAB PO SCH; GABAPENTIN 600 MG DOSE PO SCH; LR 500ML BOLUS, THEN 15ML/HR IV SCH; ROPIVACAINE 0.5% HCL/PF 150 MG, BUPIVACAINE 0.5% MPF 30 ML, EPINEPHrine 30MG/30ML (OR U... INFIL SCH; TRANEXAMIC ACID 1,000 MG **IV Intra-op IV SCH; TRANEXAMIC ACID 1,000 MG **IV Pre-op IV SCH; dexAMETHasone 4 MG TAB PO SCH
[2018-09-27] MEDS ORDERED: fentaNYL citrate 100 MCG/2 ML VIAL ONE (09:09)
[2018-09-27] MEDS ORDERED: MIDAZOLAM HCL 1 MG/ML 2ML VIAL ONE (09:09)
--- NOTE | 2018-09-27 09:39 | History & Physical Bridge Note ---
Date of Service September 27, 2018 History & Physical Bridge Note I have examined the patient, reviewed the History & Physical and in the interval since the performance of the History & Physical I have noted the following changes of clinical significance: no changes noted
[2018-09-27] MEDS ORDERED: BACITRACIN INJ 50,000 UNIT VIAL ONE (10:03)
[2018-09-27] MEDS ORDERED: ORTHO JOINT ANESTHETIC ONE (10:03)
[2018-09-27] MEDS ORDERED: ONDANSETRON INJ 2 MG/ML 2 ML VIAL IV PRN (11:17)
[2018-09-27] MEDS ORDERED: ATROPINE SULFATE 0.1 MG/ML 10ML SYR IV PRN (11:17)
[2018-09-27] MEDS ORDERED: fentaNYL citrate 100 MCG/2 ML VIAL IV PRN (11:17)
[2018-09-27] MEDS ORDERED: ePHEDrine sulfate 50 MG/ML AMP IV PRN (11:17)
--- NOTE | 2018-09-27 11:58 | Operative Report ---
Post Operative Report Pre & Post Diagnosis Operation Date: 09/27/18 11:00 Pre-Op Diagnosis: Left Knee Osteoarthritis Post-Op Diagnosis: Left Knee Osteoarthritis Procedure Operation Date: 09/27/18 11:00 Actual Procedures p Left Total Knee Arthroplasty, Cemented(Left) utilizing journey to non-block total knee arthroplasty size 4 femur 3 tibia 9 polyethylene 29 oval patella- Th jacques Ott DO Surgeon Kirk Ott DO Field Court Researcher Stanislav ROGERS Estimated Blood Loss 5 Findings Consistent with Post-Op Diagnosis Patient presents with severe end-stage tricompartmental degenerative joint disease left knee with varus alignment subchondral sclerosis marginal osteophytes [id number] eburnated bone moderate to large effusion noted Specimens Bone cartilage Drains Medium bore Hemovac Complications none Disposition Accompanied Patient To Recovery: No Disposition: Recovery Room Indications Patient presents with severe end-stage tricompartmental degenerative joint disease of the left knee no response to conservative management she presents for total neuroplasty above intraoperative findings were noted patient failed TENS of [place] supplementation cortical steroid injection relative rest activity modification bracing the above findings were noted Description of Procedure The patient was properly identified subsequently after proper prepping and draping of the left lower extremity anterior midline incision was made over the region of the extensor extensor mechanism after meticulous hemostasis was obtained and maintained in subcutaneous tissues a medial parapatellar incision was made The patella was subluxed lateralward the medial lateral gutter were cleaned from any hypertrophic synovitis and scar tissue of the distal femoral block was placed and the distal femoral osteotomy cut was made subsequently the chamfers anterior and posterior osteotomy cuts were made utilizing the 4-in-1 block the tibia was subsequently subluxed anteriorward medial and ateral meniscal remnants were excised in their entirety remnants of the anterior and posterior cruciate ligaments were excised in their entirety excellent exposure of the proximal tibia was obtained the tibial osteotomy guide was placed on the proximal tibial osteotomy cut was made once again the knee was irrigated with copious amounts of sterile saline solution the patella was subsequently everted lateralward thickened scar tissue around the patella was removed the patella was subsequently cut utilizing a freehand technique and was drilled prepared for final preparation and placement of patella socially flexion-extension gaps were checked and the equal and symmetric trials were placed to the appropriate femoral and tibial trials with poly-spacer being placed for equal flexion and extension gaps and full range of motion including extension to 0 and flexion to 140 the trial components after having been taken to recovery range of motion was subsequently removed meticulous hemostasis was obtained and maintained subsequently a knee block injection of joint cocktail including ropivacaine 0.5% 150 mg. Bupivacaine 0.5% epinephrine 1-200,030 mL's toradol 30 mg dexamethasone 4 mg ketamine 10 mg clonidine 100 micrograms normal saline solution 30 mg was infiltrated into the soft tissues of the posterior knee medial lateral gutters and periosteal synovium special attention was paid to protect neurovascular structures at all times subsequently trial components having been removed the knee was irrigated with sterile saline solution. debris was removed the proximal tibia was subsequently prepared and was made ready for the placement of the tibial component tibial component was also cemented and tamped into position the femoral component was subsequently placed and cemented in the position the patellar component was subsequently cemented in position because hemostasis once again obtained and maintained wound having been thoroughly irrigated with debridement and debridement lavage was performed as well as a medial parapatellar incision closed with #1 Vicryl in interrupted fashion subcutaneous was closed with #2 Vicryl skin was closed with skin clips. PA-C was necessary for prepping and drapping as well as wound closure of deep fascia Sub cutaneous tissue and skin and was necessary for the case. A sterile compressive dressing was placed patient was taken to recovery in stable condition of report dictated by Tru I attest to the content of the Intraoperative Record and any orders documented therein. Any exceptions are noted below. I attest to the content of the Intraoperative Record and any orders documented therein. Any exceptions are noted below.
[2018-09-27] MEDS ORDERED: PROPOFOL IV EMULSION 10 MG/ML 20 ML VIAL IV ONE (12:25)
[2018-09-27] MEDS ORDERED: LIDOCAINE HCL 2% 2 ML VIAL/AMP(20MG/ML) INFIL ONE (12:25)
--- NOTE | 2018-09-27 13:18 | XRay Report ---
XR knee LT 2V routine CLINICAL HISTORY: Surgical Post Op postoperative evaluation COMPARISON: None. DISCUSSION: Anatomic alignment posttotal left knee arthroplasty. Good contact between prosthetic and underlying bone. Expected soft tissue postoperative change. IMPRESSION: Anatomic alignment posttotal left knee arthroplasty. The above report was generated using voice recognition software. It may contain grammatical, syntax or spelling errors. Electronically signed by: Aubrey Enriquez M.D. 09/27/2018 1:17 PM
[2018-09-27] MEDS ORDERED: MAGNESIUM HYDROXIDE SUSP 30 ML UDC PO PRN (13:49)
[2018-09-27] MEDS ORDERED: ALUMINUM/MAGNESIUM SUSP 30 ML UDC PO PRN (13:49)
[2018-09-27] MEDS ORDERED: NALOXONE HCL 0.4 MG/1 ML VIAL/CARP IV PRN (13:49)
[2018-09-27] MEDS ORDERED: BISACODYL 10 MG SUPP PR PRN (13:49)
[2018-09-27] MEDS ORDERED: SODIUM CHLORIDE 0.9% 1000ML 1,000 ML IV SCH (14:30)
--- NOTE | 2018-09-27 16:03 | Anesthesiology Progress Note ---
Date of Service September 27, 2018 Anesthesia Post Procedure Vital Signs Vital Signs: Temp Pulse Pulse Resp BP Pulse Ox 09/27/18 14:56 74 16 128/79 95 09/27/18 14:18 36.5 C 70 16 128/84 96 09/27/18 13:50 36.6 C 78 16 126/84 93 09/27/18 13:30 36.5 C 78 15 129/91 95 09/27/18 13:20 72 16 138/89 94 09/27/18 13:10 36.5 C 75 17 137/87 97 09/27/18 13:00 36.5 C 78 21 144/84 H 96 09/27/18 12:50 36.5 C 75 19 136/85 95 09/27/18 12:42 36.5 C 80 12 138/85 100 09/27/18 08:13 36.7 C 83 20 103/74 96 Pain Intensity Left Knee: Pain Intensity: 5 Transfer of Care Handoff Completed per policy Notes Mental Status: alert / awake / arousable and participated in evaluation Nausea / Vomiting: adequately controlled Pain: adequately controlled Airway Patency, RR, SpO2: stable & adequate BP & HR: stable & adequate Hydration State: stable & adequate Neuraxial Anesthesia: was administered and sensory block is resolving Anesthetic Complications: no major complications apparent and Pt Satisfied with anesthetic care
[2018-09-27] MEDS: ACETAMINOPHEN 500 MG TAB PO SCH (16:11)
[2018-09-27] MEDS: CEFAZOLIN 2000MG 2,000 MG/15 ML SYR IV SCH (19:58)
[2018-09-27] MEDS: DOCUSATE SODIUM 100 MG CAP PO SCH (20:02)
[2018-09-27] MEDS: SERTRALINE HCL 100 MG TABLET PO SCH (20:02)
[2018-09-27] MEDS: SENNA 8.6 MG TAB PO SCH (20:02)
[2018-09-27] MEDS: OXYCODONE HCL IR 5 MG TAB (IMMEDIATE RELEASE) PO PRN ×2 (20:06→23:40)
[2018-09-28] MEDS: HYDROmorphone INJ 0.5 MG/0.5 ML SYR IV PRN ×4 (02:21→20:41)
[2018-09-28] MEDS: CEFAZOLIN 2000MG 2,000 MG/15 ML SYR IV SCH (02:21)
[2018-09-28] MEDS: ACETAMINOPHEN 500 MG TAB PO SCH ×3 (05:37→21:14)
--- NOTE | 2018-09-28 07:30 | Orthopedic Progress Note ---
Date of Service September 28, 2018 Assessment & Plan (1) Status post total left knee replacement: POD #1 s/p Left TKA pt/ot dvt proph with ARIEL/SCD/ASA plan for d/c home with HHPT when stable Subjective POD #1 s/p Left TKA denies CP/SOB denies Fever/chills denies N/V Physical Exam Physical Exam: Vital Signs Temp 36.6 C 09/28/18 03:39 Pulse 69 09/28/18 03:39 Resp 16 09/28/18 03:39 BP 139/82 09/28/18 03:39 Pulse Ox 96 09/28/18 03:39 Intake & Output 09/27/09/28/18 09/28/18 18:59 06:59 18:59 Intake Total 3120 / 4370 1250 / 4370 Output Total 11 / 151 140 / 151 Balance 3109 / 4219 1110 / 4219 Weight 95.663 kg Intake: IV 1220 / 2170 950 / 2170 Lr 1,000 ml @ 15 mls/hr IV . 1000 / 1000 Q24H [facility] Rx#:[id number] Nss 1000ML 1,0 00 ml @ 100 mls/ 950 / 950 hr IV .Q10H SC H Rx#:[id number] Cyklokapron 1, 000 mg In Sodium 220 / 220 Chloride 100 m l @ 660 mls/hr IV 0630 [facility] Rx#:[id number] IV Perioperative 1900 / 1900 Oral 300 / 300 Output: Estimated Blood Loss 10 / 10 Drain Output 1 / 141 140 / 141 Left Knee Hemo vac #1 1 / 141 140 / 141 Other: # Unmeasured Voi ds 1 Musculoskeletal: left leg: NVDI, calf SNT, negative anamaria sign. DP palpable, able to wiggle toes/ankle movement without difficulty. dressing clean dry and intact. expected post-operative bruising noted. Results & Data Vital Signs (Past 12 Hours) Vital Signs Temp Pulse Resp BP Pulse Ox 09/28/18 03:39 36.6 C 69 16 139/82 96 09/27/18 23:21 36.7 C 70 16 129/76 95 Laboratory Results labs pending Diagnostic Findings XR knee LT 2V routine CLINICAL HISTORY: Surgical Post Op postoperative evaluation COMPARISON: None. DISCUSSION: Anatomic alignment post-total left knee arthroplasty. Good contact between prosthetic and underlying bone. Expected soft tissue postoperative change. IMPRESSION: Anatomic alignment post-total left knee arthroplasty.
[2018-09-28] MEDS: DOCUSATE SODIUM 100 MG CAP PO SCH ×2 (07:39→20:46)
[2018-09-28] MEDS: MULTIVITAMIN TAB PO SCH (07:39)
[2018-09-28] MEDS: ARIPiprazole 10 MG TAB PO SCH (07:39)
[2018-09-28] MEDS: ASPIRIN 81 MG ECTAB PO SCH ×2 (08:23→20:46)
[2018-09-28] MEDS: OXYCODONE HCL IR 5 MG TAB (IMMEDIATE RELEASE) PO PRN ×4 (08:23→23:38)
[2018-09-28 08:27] LABS: Hemoglobin 10.1 g/dL (12.0-16.0); Mean Corpuscular Hgb Conc 31.6 g/dL (32-36); Mean Corpuscular Volume 89.6 fL (80-100); Mean Platelet Volume 8.9 fL (7.4-10.4); Platelet Count 350 K/uL (130-400); RDW Coefficient of Variation 13.9 % (11.5-14.5); RDW Standard Deviation 45.8 fL (36.4-46.3); Red Blood Count 3.57 M/uL (4.2-5.4); White Blood Count 12.87 K/uL (4.8-10.8)
[2018-09-28 08:53] LABS: BUN Creatinine Ratio 12.9 (10-20); Calcium 9.1 mg/dl (8.5-10.1); Creatinine Clr Calc Pharmacy 35.3 ml/min; Est GFR (African American) 36.6; Est GFR (Non-African American) 31.5; Potassium 4.1 mmol/L (3.5-5.1)
[2018-09-28] MEDS: ALPRAZolam 0.5 MG TABLET PO PRN (14:19)
[2018-09-28] MEDS: SENNA 8.6 MG TAB PO SCH (20:46)
[2018-09-28] MEDS: SERTRALINE HCL 100 MG TABLET PO SCH (20:46)
[2018-09-29] MEDS: HYDROmorphone INJ 0.5 MG/0.5 ML SYR IV PRN ×5 (01:10→22:04)
[2018-09-29] MEDS: ALPRAZolam 0.5 MG TABLET PO PRN (03:20)
[2018-09-29] MEDS: OXYCODONE HCL IR 5 MG TAB (IMMEDIATE RELEASE) PO PRN ×2 (04:18→14:05)
[2018-09-29] MEDS: ACETAMINOPHEN 500 MG TAB PO SCH ×3 (05:18→21:23)
--- NOTE | 2018-09-29 07:22 | Orthopedic Progress Note ---
Date of Service September 29, 2018 Assessment & Plan (1) Status post total left knee replacement: POD #2 s/p Left TKA pt/ot dvt proph with ARIEL/SCD/ASA plan for d/c home with HHPT when stable will adjust her Xanax to tid scheduled as she takes it at home, also reviewed in the PDMP and she does take the Oxy 15mg bid josue at home, will resume this, recheck after PT today and if pain is improved will d/c with HHPT Subjective POD #2 s/p Left TKA denies CP/SOB denies Fever/chills denies N/V increased pain the past 24 hours, after discussion patient is on oxy 15mg po bid at home and wasn't on her med rec intake. will restart this today Physical Exam Physical Exam: Vital Signs Temp Pulse Pulse Resp BP Pulse Ox 09/29/18 06:27 36.8 C 83 16 148/90 H 93 09/28/18 23:12 37 C 80 16 151/91 H 95 09/28/18 14:58 36.7 C 81 17 121/78 97 09/28/18 13:00 36.4 C L 76 76 16 111/74 96 09/28/18 07:49 36.6 C 67 16 124/80 94 Intake and Output 09/28/18 09/29/18 09/29/18 22:59 06:59 14:59 Intake Total 300 / 350 50 / 350 Output Total 50 / 135 10 / 135 Balance 250 / 215 40 / 215 Intake: Oral 300 / 350 50 / 350 Output: Drain Output 50 / 135 10 / 135 Left Knee Hemo vac #1 50 / 135 10 / 135 Other: # Unmeasured Voi ds 1 Constitutional: WD/WN, vitals as above no acute distress Musculoskeletal: left lower leg: NVDI, calf SNT, negative anamaria sign. DP palpable, able to wiggle toes/ankle movement without difficulty. MITA dressing clean dry and intact. expected post-operative bruising noted. Results & Data Vital Signs (Past 12 Hours) Vital Signs Temp Pulse Resp BP Pulse Ox 09/29/18 06:27 36.8 C 83 16 148/90 H 93 09/28/18 23:12 37 C 80 16 151/91 H 95 Laboratory Results Laboratory Results WBC 12.87 K/uL (4.8-10.8) H 09/28/18 08:02 RBC 3.57 M/uL (4.2-5.4) L 09/28/18 08:02 Hgb 10.1 g/dL (12.0-16.0) L 09/28/18 08:02 Hct 32.0 % (37-47) L 09/28/18 08:02 MCV 89.6 fL (80-100) 09/28/18 08:02 MCH 28.3 pg (25-34) 09/28/18 08:02 MCHC 31.6 g/dL (32-36) L 09/28/18 08:02 RDW Std Deviation 45.8 fL (36.4-46.3) 09/28/18 08:02 RDW Coeff of Heather 13.9 % (11.5-14.5) 09/28/18 08:02 Plt Count 350 K/uL (130-400) 09/28/18 08:02 MPV 8.9 fL (7.4-10.4) 09/28/18 08:02 PT 10.5 Seconds (9.0-12.0) 09/21/18 10:24 INR 1.0 (0.9-1.1) 09/21/18 10:24 APTT 29.1 Seconds (21.0-31.0) 09/21/18 10:24 PTT Ratio 1.1 09/21/18 10:24 Sodium 142 mmol/L (136-145) 09/28/18 08:02 Potassium 4.1 mmol/L (3.5-5.1) 09/28/18 08:02 Chloride 108 mmol/L (98-107) H 09/28/18 08:02 Carbon Dioxide 28 mmol/L (21-32) 09/28/18 08:02 Anion Gap 6.0 (3-11) 09/28/18 08:02 BUN 22 mg/dl (7-18) H 09/28/18 08:02 Creatinine 1.71 mg/dl (0.6-1.2) H 09/28/18 08:02 Est Cr Clr Drug Dosing 35.3 ml/min 09/28/18 08:02 Est GFR ( Amer) 36.6 09/28/18 08:02 Est GFR (Non-Af Amer) 31.5 09/28/18 08:02 BUN/Creatinine Ratio 12.9 (10-20) 09/28/18 08:02 Glucose 104 mg/dl (70-99) H 09/28/18 08:02 Estimat Average Glucose 117 mg/dl 09/21/18 10:24 Hemoglobin A1c 5.7 % (4.5-5.6) H 09/21/18 10:24 Calcium 9.1 mg/dl (8.5-10.1) 09/28/18 08:02 Albumin 2.9 gm/dl (3.4-5.0) L 09/21/18 10:24 Urine Color Dark Yellow 09/21/18 10:24 Urine Appearance Turbid (Clear) A 09/21/18 10:24 Urine pH 6.0 (4.5-7.5) 09/21/18 10:24 Ur Specific [place] 1.015 (1.000-1.030) 09/21/18 10:24 Urine Protein 1+ (Negative) H 09/21/18 10:24 Urine Glucose (UA) Negative (Negative) 09/21/18 10:24 Urine Ketones Negative (Negative) 09/21/18 10:24 Urine Blood 2+ (Negative) H 09/21/18 10:24 Urine Nitrite Positive (Negative) A 09/21/18 10:24 Urine Bilirubin Negative (Negative) 09/21/18 10:24 Urine Urobilinogen Negative (Negative) 09/21/18 10:24 Ur Leukocyte Esterase 3+ (Negative) H 09/21/18 10:24 Urine WBC (Auto) >30 /hpf (0-5) H 09/21/18 10:24 Urine RBC (Auto) 10-30 /hpf (0-4) H 09/21/18 10:24 U Hyaline Cast (Auto) 1-5 /lpf (0-5) 09/21/18 10:24 U Epithel Cells (Auto) >30 /lpf (0-5) H 09/21/18 10:24 Urine Bacteria (Auto) 4+ (Negative) H 09/21/18 10:24 Blood Type O Positive 09/21/18 10:24 Antibody Screen NEGATIVE 09/21/18 10:24
[2018-09-29] MEDS: OXYCODONE HCL 15 MG TABCR (OXYCONTIN) PO SCH ×2 (07:40→19:35)
[2018-09-29] MEDS: ARIPiprazole 10 MG TAB PO SCH (07:40)
[2018-09-29] MEDS: DOCUSATE SODIUM 100 MG CAP PO SCH ×2 (07:40→21:22)
[2018-09-29] MEDS: ASPIRIN 81 MG ECTAB PO SCH ×2 (07:40→21:23)
[2018-09-29] MEDS: MULTIVITAMIN TAB PO SCH (07:40)
[2018-09-29] MEDS: ALPRAZolam 0.5 MG TABLET PO SCH ×3 (08:03→21:24)
[2018-09-29 15:01] LABS: BUN Creatinine Ratio 12.5 (10-20); Calcium 8.9 mg/dl (8.5-10.1); Creatinine Clr Calc Pharmacy 41.9 ml/min; Est GFR (Non-African American) 38.8; Potassium 4.1 mmol/L (3.5-5.1)
[2018-09-29] MEDS: ONDANSETRON INJ 2 MG/ML 2 ML VIAL IV PRN (20:16)
[2018-09-29] MEDS: SERTRALINE HCL 100 MG TABLET PO SCH (21:23)
[2018-09-29] MEDS: SENNA 8.6 MG TAB PO SCH (21:23)
[2018-09-30] MEDS: OXYCODONE HCL IR 5 MG TAB (IMMEDIATE RELEASE) PO PRN ×3 (01:53→11:56)
[2018-09-30] MEDS: HYDROmorphone INJ 0.5 MG/0.5 ML SYR IV PRN (05:08)
[2018-09-30] MEDS: ACETAMINOPHEN 500 MG TAB PO SCH ×2 (05:08→13:33)
[2018-09-30] MEDS: DOCUSATE SODIUM 100 MG CAP PO SCH (07:29)
[2018-09-30] MEDS: MULTIVITAMIN TAB PO SCH (07:30)
[2018-09-30] MEDS: ASPIRIN 81 MG ECTAB PO SCH (07:30)
[2018-09-30] MEDS: ALPRAZolam 0.5 MG TABLET PO SCH ×2 (07:30→13:33)
[2018-09-30] MEDS: OXYCODONE HCL 15 MG TABCR (OXYCONTIN) PO SCH (07:30)
[2018-09-30] MEDS: ARIPiprazole 10 MG TAB PO SCH (07:30)
[2018-09-30] MEDS: ONDANSETRON INJ 2 MG/ML 2 ML VIAL IV PRN (07:53)
--- NOTE | 2018-09-30 08:32 | Orthopedic Progress Note ---
Date of Service September 30, 2018 Assessment & Plan (1) Status post total left knee replacement: POD #3 s/p Left TKA pt/ot dvt proph with ARIEL/SCD/ASA plan for d/c home with HHPT when stable recheck after PT today and if pain is improved will d/c with HHPT Subjective POD #3 s/p Left TKA denies CP/SOB denies Fever/chills denies N/V states doing better today with her pain, if can get a ride home is willing to go today. Physical Exam Physical Exam: Left knee wound vac in tact, no erythema, no drainage, toes and ankle mobile, A&Ox3. Results & Data Vital Signs (Past 12 Hours) Vital Signs Temp Pulse Resp BP Pulse Ox 09/30/ 06:28 36.8 C 87 14 164/97 H 92 09/29/18 23:34 36.6 C 91 H 16 146/85 H 92
--- NOTE | 2018-10-03 02:52 | Discharge Summary ---
DISCHARGE DIAGNOSIS: Degenerative joint disease, left knee. SECONDARY DIAGNOSES: Anxiety, depression, history of heart palpitations, history of renal calculi, morbid obesity, sleep apnea with use of CPAP. CONSULTS: None. COMPLICATIONS: None. PROCEDURES: Left total knee arthroplasty performed by Dr. Ott on 09/27/2018. BRIEF HISTORY: As dictated in the history and physical. HOSPITAL SUMMARY: The patient was admitted on the above-noted date and had the above-noted surgery performed, which she tolerated well. On the first postoperative day, she had no complaints and was comfortable. Vital signs were stable. She was afebrile. Neurovascular was intact. Calves were soft and nontender. Toes were mobile. Dressings clean, dry and intact and she was started on physical therapy protocol and continued on DVT prophylaxis and pain management. Hemoglobin was 10.1. By her second postoperative day, she denied chest pain or shortness of breath. Denied fever or chills. No nausea or vomiting. She had increased pain in the last 24 hours and after discussing her medications with her that she did at home, which she was apparently on OxyContin 15 mg p.o. b.i.d. at home and was not on her regular medication intake, this was restarted. Vital signs were stable. She was afebrile. Neurovascularly intact. Calves were soft and nontender. Toes were mobile. MITA dressings were clean, dry and intact. She was continued on her PT protocols and plans for home health services upon discharge. She was continued on DVT prophylaxis. Her Xanax was also adjusted to how she takes it at home and she was continued on her protocol. By her third postoperative day, she was doing better with her pain control and stated that if she was able to get a ride home, she would be willing to get home. Left knee wound MITA was intact. No erythema, no drainage. Toes and ankle were mobile. Vital signs were stable. She was afebrile. She was continued on her PT protocol and was doing well after PT and it was felt she could be discharged to home. For further review, please see chart. LABORATORY AND X-RAY DATA: As per chart. DISCHARGE INSTRUCTIONS: The patient was discharged to home in satisfactory condition on 09/30/2018. DIET: Regular. ACTIVITY: Weightbearing as tolerated of the left lower extremity with a walker. Follow TK instruction sheets and special care instructions as noted. Follow up with Dr. Ott in 2 weeks. The patient is to call for appointment if one has not been made for you. DISCHARGE MEDICATIONS: Acetaminophen 1000 mg p.o. q. 8 hours, aspirin 81 mg p.o. b.i.d., oxycodone 5-10 mg p.o. q. 6 hours, OxyContin 15 mg p.o. q. 12 hours, and sennosides 17.2 mg p.o. at bedtime. Resume home meds as listed. Stop taking previous aspirin and oxycodone dosage at home.
== END 2018-09-30 14:46 | disposition home health service (06) | DRG 470 ==
LOC: ASU 07:23 → 3E 12:48

== ENCOUNTER 2021-09-08 05:20 | Inpatient (IN) ==
--- NOTE | 2021-08-06 08:43 | PAT Medication Instructions ---
Medication Instructions Date of Service August 06, 2021 Home Medications Medication Instructions Recorded ondansetron HCl 4 mg tablet 4 mg PO Q8H PRN #10 tab 05/14/21 aripiprazole 10 mg tablet (Abilify) 10 mg PO QPM sertraline 100 mg tablet (Zoloft) 200 mg PO HS albuterol 90 mcg/actuation aerosol inhaler 90 mcg INHALATION UD PRN budesonide-formoterol HFA 160 mcg-4.5 mcg/actuation aerosol inhaler (Symbicort) 2 puff INHALATION BID fluticasone fur. 200 mcg-umeclid 62.5 mcg-vilant 25 mcg inhalat.powder (Trelegy Ellipta) 1 inh INHALATION QAM meclizine 12.5 mg tablet 12.5 mg PO QID PRN meloxicam 15 mg tablet 15 mg PO QAM ondansetron HCl 4 mg tablet 4 mg PO Q8H PRN filgrastim 300 mcg/mL injection solution (Neupogen) 300 mcg SUBCUT MONTHLY ASK your surgeon for instructions meloxicam 15 mg tablet 15 mg PO QAM ASK your prescriber and surgeon filgrastim 300 mcg/mL injection solution (Neupogen) 300 mcg SUBCUT MONTHLY Check with prescriber aripiprazole 10 mg tablet (Abilify) 10 mg PO QPM Take morning of surgery With a small sip of water, OTHERWISE NOTHING TO EAT OR DRINK AFTER MIDNIGHT: albuterol 90 mcg/actuation aerosol inhaler 90 mcg INHALATION UD PRN(use if needed; please bring with you to hospital day of surgery if possible) budesonide-formoterol HFA 160 mcg-4.5 mcg/actuation aerosol inhaler (Symbicort) 2 puff INHALATION BID fluticasone fur. 200 mcg-umeclid 62.5 mcg-vilant 25 mcg inhalat.powder (Trelegy Ellipta) 1 inh INHALATION QAM meclizine 12.5 mg tablet 12.5 mg PO QID PRN(if needed) ondansetron HCl 4 mg tablet 4 mg PO Q8H PRN(if needed) Take evening before surgery sertraline 100 mg tablet (Zoloft) 200 mg PO HS albuterol 90 mcg/actuation aerosol inhaler 90 mcg INHALATION UD PRN(if needed) budesonide-formoterol HFA 160 mcg-4.5 mcg/actuation aerosol inhaler (Symbicort) 2 puff INHALATION BID meclizine 12.5 mg tablet 12.5 mg PO QID PRN(if needed) ondansetron HCl 4 mg tablet 4 mg PO Q8H PRN(if needed) Other Notes If you have any questions please call us at [phone] or [phone] or [phone] or [phone]
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
[2021-09-08] MEDS ORDERED: TRANEXAMIC ACID 1,000 MG **IV Intra-op IV SCH (06:00)
[2021-09-08] MEDS ORDERED: LR 500ML BOLUS, THEN 15ML/HR IV SCH (06:00)
[2021-09-08] MEDS ORDERED: FAMOTIDINE 20 MG TAB PO SCH (06:00)
[2021-09-08] MEDS ORDERED: GABAPENTIN 300 MG CAP PO SCH (06:00)
[2021-09-08] MEDS ORDERED: dexAMETHasone 4 MG TAB PO SCH (06:00)
[2021-09-08] MEDS ORDERED: CeleBREX 200 MG CAP PO SCH (06:00)
[2021-09-08] MEDS ORDERED: ROPIVACAINE 0.5% HCL/PF 150 MG, BUPIVACAINE 0.75% MPF 20 ML, EPINEPHrine 30MG/30ML (OR ... INFIL SCH (06:00)
[2021-09-08] MEDS ORDERED: VANCOMYCIN HCL 1,750 MG in SODIUM CHLORIDE 0.9% 500 ML IV SCH (06:00)
[2021-09-08] MEDS ORDERED: METOCLOPRAMIDE HCL 10 MG TABLET PO SCH (06:00)
[2021-09-08] MEDS ORDERED: TRANEXAMIC ACID 1,000 MG **IV Pre-op IV SCH (06:00)
[2021-09-08] MEDS ORDERED: ACETAMINOPHEN 500 MG TAB PO SCH (06:00)
[2021-09-08] MEDS ORDERED: ROPIVACAINE 0.5% 5 MG/ML 30 ML VIAL ONE (06:19)
[2021-09-08] MEDS ORDERED: BUPIVACAINE 0.5 % 5 MG/1 ML PF 10ML VIAL ONE (06:19)
[2021-09-08] MEDS ORDERED: MIDAZOLAM HCL 1 MG/ML 2ML VIAL ONE (06:40)
[2021-09-08] MEDS ORDERED: fentaNYL citrate 100 MCG/2 ML VIAL ONE (06:40)
[2021-09-08] MEDS ORDERED: ePHEDrine sulfate 50 MG/ML AMP IV PRN (06:41)
[2021-09-08] MEDS ORDERED: ONDANSETRON INJ 2 MG/ML 2 ML VIAL IV PRN (06:41)
[2021-09-08] MEDS ORDERED: fentaNYL citrate 100 MCG/2 ML VIAL IV PRN (06:41)
[2021-09-08] MEDS ORDERED: ATROPINE SULFATE 0.1 MG/ML 10ML SYR IV PRN (06:41)
[2021-09-08] MEDS ORDERED: ORTHO JOINT ANESTHETIC ONE (06:49)
--- NOTE | 2021-09-08 07:04 | History & Physical Bridge Note ---
Date of Service September 08, 2021 History & Physical Bridge Note I have examined the patient, reviewed the History & Physical and in the interval since the performance of the History & Physical I have noted the following changes of clinical significance: no changes noted
[2021-09-08] MEDS: ceFAZolin 2000MG 2,000 MG/15 ML SYR IV SCH ×4 (07:10→23:43)
--- NOTE | 2021-09-08 09:11 | Operative Report ---
Post Operative Report Pre & Post Diagnosis Operation Date: 09/08/21 07:00 Pre-Op Diagnosis: Left Knee Failed Joint Prosthesis Post-Op Diagnosis: Left Knee Failed Joint Prosthesis aseptic tibial loosening with increased tibial slope I identified the patient and participated in the time-out.: Yes Procedure Operation Date: 09/08/21 07:00 Actual Procedures p Left Knee tibial revision to [facility] size to by 14 x 120 stem with 4 mm offset at 2:00 with an 18 poly-revision Arthroplasty(Left) - Kirk Ott DO Surgeon Kirk Ott DO Ammonia Distiller KEN Mckeon Estimated Blood Loss 5 Findings Consistent with Post-Op Diagnosis Patient presents with a painful total knee arthroplasty left knee painful mid flexion with increased tibial slope and medial subsidence of the implant which was also visualized the time of surgery no evidence of any type of infectious etiology was noted intraoperative Gram stain was negative preoperative work-up including sed rate and CRP are within normal limits Specimens Tibial component Drains Medium bore Hemovac Anesthesia Type MAC Spinal Regional Complications none Disposition Accompanied Patient To Recovery: No Disposition: Recovery Room Indications Patient presents with persistently painful left total knee arthroplasty with some mild subsidence of the tibial implant and increased posterior inclination of the tibial cut patient had mid flexion instability and pain and presents for tibial revision Description of Procedure Application of regional anesthesia the left lower extremity socially prepped draped you sterile fashion for surgery of this type utilize #10 blade incision made in region of previous incision dissection carried down to the extensor mechanism the medial parapatellar incision was made the patella was subluxed lateralward medial lateral gutters were had scar removed there was some subsidence of the tibial component the Gram stain revealed no evidence of infection the year nor was there any visual sign of synovial infection cleared synovial joint fluid the wound was irrigated the tibial polywas removed the tibial tray was removed with an ultra drive and a Mirna subsequently after obtaining exposure of the proximal tibia proximal tibia was reamed up to a size 14 a stemmed component was then prepared the back table and trialed a 18 mm polygave excellent stability in both flexion mid flexion and extension into her medullary guide was used for the proximal tibial cut excellent fit fill and coverage and rotation was noted of the tibial component so she was cemented into the tibial canal as noted above under direct visualization the polywas placed stability to be excellent in all ranges of motion was irrigated with copious months of sterile saline solution medial parapatellar incision closed #1 Vicryl subcu was closed with 2-0 Vicryl skin was closed with running septic suture 3 oh Sterile compressive dressing was placed.Due to the complex nature of the procedure, the entire surgery was performed with the operational assistance of KEN Mckeon The assistant professor of religion, under direct supervision, was involved in the actual performance of all aspects of the surgical procedure including hemostasis, tissue retraction and incision, instrument management, patient positioning, and wound closure. I attest to the content of the Intraoperative Record and any orders documented therein. Any exceptions are noted below.
[2021-09-08] MEDS ORDERED: HYDROmorphone INJ 1 MG/ML SYRINGE IV PRN (09:49)
[2021-09-08] MEDS ORDERED: bisacodyL 10 MG SUPP PR PRN (09:49)
[2021-09-08] MEDS ORDERED: NALOXONE HCL 0.4 MG/1 ML VIAL/CARP IV PRN (09:49)
[2021-09-08] MEDS ORDERED: diphenhydrAMINE Capsule 25 MG CAP PO PRN (09:49)
[2021-09-08] MEDS ORDERED: MAGNESIUM HYDROXIDE SUSP 30 ML UDC PO PRN (09:49)
[2021-09-08] MEDS ORDERED: METOCLOPRAMIDE HCL INJ 5 MG/ML 2 ML VIAL IV PRN (09:49)
--- NOTE | 2021-09-08 10:16 | XRay Report ---
XR knee LT 1 or 2V routine CLINICAL HISTORY: Surgical Post Op TECHNIQUE: 2 views of the left knee were obtained. Comparison: Comparison is made to knee radiographs 09/27/2018 FINDINGS: Postsurgical appearance of knee arthroplasty revision with subcutaneous emphysema and soft tissue swe lling. IMPRESSION: Expected postoperative appearance status post revision of total knee arthroplasty. ACT 112: Negative or not required by law. Electronically signed by: Norberto Gómez M.D. 09/08/2021 10:15 AM
[2021-09-08] MEDS ORDERED: MECLIZINE 12.5 MG TAB PO PRN (10:41)
--- NOTE | 2021-09-08 10:43 | Anesthesiology Progress Note ---
Date of Service September 08, 2021 Anesthesia Post Procedure Vital Signs Vital Signs: Temp Pulse Pulse Resp BP Pulse Ox 09/08/21 10:35 97.5 F L 77 18 125/77 94 09/08/21 10:30 97.7 F 83 18 120/75 92 09/08/21 10:15 78 18 119/80 93 09/08/21 10:05 78 18 112/81 94 09/08/21 09:55 77 14 115/78 98 09/08/21 09:45 97.7 F 78 20 123/83 95 09/08/21 05:48 98.4 F 90 20 151/82 H 92 Pain Intensity Left Knee: Pain Intensity: 8 Transfer of Care Handoff Completed per policy Notes Mental Status: alert / awake / arousable and participated in evaluation Patient Amnestic to Procedure: Yes Nausea / Vomiting: adequately controlled Pain: adequately controlled Airway Patency, RR, SpO2: stable & adequate BP & HR: stable & adequate Hydration State: stable & adequate Neuraxial Anesthesia: was administered and sensory block is resolving Anesthetic Complications: no major complications apparent and Pt Satisfied with anesthetic care
[2021-09-08] MEDS: SODIUM CHLORIDE 0.9% 1000ML 1,000 ML IV SCH ×2 (11:04→20:38)
[2021-09-08] MEDS ORDERED: ALBUTEROL HFA 8 GM INHALER INH PRN (11:05)
[2021-09-08] MEDS: KETOROLAC TROMETHAMINE 15 MG/ML VIAL IV SCH ×3 (12:40→23:43)
[2021-09-08] MEDS: ACETAMINOPHEN 500 MG TAB PO SCH ×2 (13:39→21:09)
[2021-09-08] MEDS: oxyCODONE HCL IR 5 MG TAB (IMMEDIATE RELEASE) PO PRN ×2 (15:48→20:27)
[2021-09-08] MEDS: ONDANSETRON INJ 2 MG/ML 2 ML VIAL IV PRN (20:29)
[2021-09-08] MEDS: ARIPiprazole 10 MG TAB PO SCH (20:33)
[2021-09-08] MEDS: DOCUSATE SODIUM 100 MG CAP PO SCH (20:34)
[2021-09-08] MEDS: SERTRALINE HCL 100 MG TABLET PO SCH (20:34)
[2021-09-08] MEDS: ASPIRIN 81 MG ECTAB PO SCH (20:34)
[2021-09-08] MEDS: SENNA 8.6 MG TAB PO SCH (20:34)
[2021-09-08] MEDS ORDERED: ZOLPIDEM TARTRATE 10 MG TAB PO PRN (21:27)
[2021-09-09] MEDS: oxyCODONE HCL IR 5 MG TAB (IMMEDIATE RELEASE) PO PRN ×3 (04:43→18:01)
[2021-09-09] MEDS: ACETAMINOPHEN 500 MG TAB PO SCH ×3 (06:00→21:01)
[2021-09-09] MEDS: KETOROLAC TROMETHAMINE 15 MG/ML VIAL IV SCH (06:00)
[2021-09-09] MEDS: SODIUM CHLORIDE 0.9% 1000ML 1,000 ML IV SCH (06:01)
[2021-09-09 07:04] LABS: Hematocrit (blood only) 35.2 % (34.1-44.9); Hemoglobin 11.6 g/dl (12.0-16.0); Mean Corpuscular Hemoglobin 30.9 pg (25.0-34.0); Mean Corpuscular Volume 93.9 fL (80.0-100.0); Mean Platelet Volume 9.2 fL (9.4-12.3); Platelet Count 201 K/uL (130-400); RDW Coefficient of Variation 13.5 % (11.5-14.5); RDW Standard Deviation 46.4 fL (36.4-46.3); Red Blood Count 3.75 M/uL (3.93-5.22); White Blood Count 10.55 K/ul (4.8-10.8)
[2021-09-09 07:09] LABS: BUN Creatinine Ratio 21.2 (10-20); Calcium 8.2 mg/dl (8.5-10.1); Est GFR (African American) 65.3 ml/min; Est GFR (Non-African American) 56.3 ml/min; Potassium 4.1 mmol/L (3.5-5.1)
[2021-09-09] MEDS: MULTIVITAMIN TAB PO SCH (08:13)
[2021-09-09] MEDS: ASPIRIN 81 MG ECTAB PO SCH ×2 (08:14→21:01)
[2021-09-09] MEDS: DOCUSATE SODIUM 100 MG CAP PO SCH ×2 (08:14→21:01)
--- NOTE | 2021-09-09 08:31 | Orthopedic Progress Note ---
Date of Service September 09, 2021 Assessment & Plan (1) Painful total knee replacement, left: Plan: Postop day 1 status post left total knee arthroplasty revision. PT/OT protocols. Weightbearing as tolerated. Continue to monitor leg strength and application of immobilizer if she continues to have her left knee buckle. DVT prophylaxis-aspirin p.o. twice daily, [place], ARIEL turner. Pain management as written. DC planning-patient is planning for home health services upon discharge. Admission and Anticipated Discharge Date Admission Date: September 08, 2021 Subjective Postop day 1 Patient sitting up in her bed eating breakfast. States that she is having some pain this morning in the operative knee. He also states that she had the leg buckle when she was trying to ambulate this morning. Discussed with her she may still have some residual weakness in the operative knee secondary to her blocks. If this continues, we would consider using an immobilizer initially for ambulation. No other complaints at this time. Physical Exam Physical Exam: Dressings are clean, dry, and intact. Calves are soft and nontender. Neurovascular is intact. Toes are mobile. She has good dorsiflexion and plantarflexion of the left foot. Hemovac drainage was 50 mL from the previous shift. Results & Data ([facility]) Vital Signs (Past 12 Hours) Vital Signs Temp Pulse Resp BP Pulse Ox O2 Del Method 09/09/21 07:16 36.6 C 72 14 105/63 95 Room Air 09/08/21 23:48 36.5 C 63 17 106/67 93 Room Air Laboratory Results Laboratory Results WBC 10.55 K/ul (4.8-10.8) 09/09/21 06:25 RBC 3.75 M/uL (3.93-5.22) L 09/09/21 06:25 Hgb 11.6 g/dl (12.0-16.0) L 09/09/21 06:25 Hct 35.2 % (34.1-44.9) 09/09/21 06:25 MCV 93.9 fL (80.0-100.0) 09/09/21 06:25 MCH 30.9 pg (25.0-34.0) 09/09/21 06:25 MCHC 33.0 g/dL (32.0-36.0) 09/09/21 06:25 RDW Std Deviation 46.4 fL (36.4-46.3) H 09/09/21 06:25 RDW Coeff of Heather 13.5 % (11.5-14.5) 09/09/21 06:25 Plt Count 201 K/uL (130-400) 09/09/21 06:25 MPV 9.2 fL (9.4-12.3) L 09/09/21 06:25 Sodium 140 mmol/L (136-145) 09/09/21 06:25 Potassium 4.1 mmol/L (3.5-5.1) 09/09/21 06:25 Chloride 110 mmol/L (98-107) H 09/09/21 06:25 Carbon Dioxide 22 mmol/L (21-32) 09/09/21 06:25 Anion Gap 8 (3-11) 09/09/21 06:25 BUN 22 mg/dl (6-23) 09/09/21 06:25 Creatinine 1.04 mg/dl (0.6-1.2) 09/09/21 06:25 Est Cr Clr Drug Dosing 60.0 ml/min 09/09/21 06:25 Est GFR ( Amer) 65.3 ml/min 09/09/21 06:25 Est GFR (Non-Af Amer) 56.3 ml/min 09/09/21 06:25 BUN/Creatinine Ratio 21.2 (10-20) H 09/09/21 06:25 Glucose 115 mg/dl (70-99(Fasting)) H 09/09/21 06:25 Calcium 8.2 mg/dl (8.5-10.1) L 09/09/21 06:25 SARS-CoV-2, RNA, NAAT NEGATIVE (NEGATIVE) 09/08/21 05:30 Impressions Knee X-Ray 09/08/21 09:52 XR knee LT 1 or 2V routine CLINICAL HISTORY: Surgical Post Op TECHNIQUE: 2 views of the left knee were obtained. Comparison: Comparison is made to knee radiographs 09/27/2018 FINDINGS: Postsurgical appearance of knee arthroplasty revision with subcutaneous emphysema and soft tissue swelling. IMPRESSION: Expected postoperative appearance status post revision of total knee arthroplasty. ACT 112: Negative or not required by law. Electronically signed by: Norberto Gómez M.D. 09/08/2021 10:15 AM
[2021-09-09] MEDS ORDERED: FLUTICASONE/VILANTEROL 200/25MCG 14 PUFFS/INHALER INH SCH (09:00)
[2021-09-09] MEDS: ONDANSETRON INJ 2 MG/ML 2 ML VIAL IV PRN ×2 (09:41→21:05)
[2021-09-09] MEDS: CeleBREX 200 MG CAP PO SCH ×2 (12:51→21:01)
[2021-09-09] MEDS: FLUTICASONE/UMECLIDIN/VILANTER 100-62.5-25 INH SCH (15:50)
[2021-09-09] MEDS: SERTRALINE HCL 100 MG TABLET PO SCH (21:00)
[2021-09-09] MEDS: SENNA 8.6 MG TAB PO SCH (21:01)
[2021-09-09] MEDS: ARIPiprazole 10 MG TAB PO SCH (21:01)
[2021-09-10] MEDS: ACETAMINOPHEN 500 MG TAB PO SCH ×2 (05:26→14:10)
[2021-09-10] MEDS: MULTIVITAMIN TAB PO SCH (07:54)
[2021-09-10] MEDS: ASPIRIN 81 MG ECTAB PO SCH (07:55)
[2021-09-10] MEDS: CeleBREX 200 MG CAP PO SCH (07:55)
[2021-09-10] MEDS: DOCUSATE SODIUM 100 MG CAP PO SCH (07:55)
[2021-09-10] MEDS: FLUTICASONE/UMECLIDIN/VILANTER 100-62.5-25 INH SCH (07:55)
[2021-09-10] MEDS: oxyCODONE HCL IR 5 MG TAB (IMMEDIATE RELEASE) PO PRN ×2 (07:57→11:58)
--- NOTE | 2021-09-10 08:06 | Orthopedic Progress Note ---
Date of Service September 10, 2021 Assessment & Plan (1) Painful total knee replacement, left: Plan: Postop day 2 status post left total knee arthroplasty revision. PT/OT protocols. Weightbearing as tolerated. Continue to monitor leg strength and application of immobilizer if she continues to have her left knee buckle. DVT prophylaxis-aspirin p.o. twice daily, SCDs, ARIEL turner. Pain management as written. Recheck labs. DC planning-patient is planning for home health services upon discharge. Consider Rehab pending today's PT progression. Admission and Anticipated Discharge Date Admission Date: September 09, 2021 Subjective POD 2 Having some pain this AM. No other complaints. States she ambulated a little bit yesterday but did not walk far. We discussed the possibility of going to [facility] if she is not progressing as well as she hoped. Pt seemed agreeable. Physical Exam Physical Exam: Dressings C/D/I. Calves soft, NT. NV intact. Toes mobile. Results & Data ([facility]) Vital Signs (Past 12 Hours) Vital Signs Temp Pulse Resp BP Pulse Ox O2 Del Method 09/10/21 07:07 36.5 C 76 16 96/61 L 92 Room Air 09/09/21 22:15 36.4 C L 80 16 107/70 92 Room Air
[2021-09-10 08:27] LABS: Hematocrit (blood only) 34.3 % (34.1-44.9); Hemoglobin 10.9 g/dl (12.0-16.0); Mean Corpuscular Hemoglobin 30.3 pg (25.0-34.0); Mean Corpuscular Hgb Conc 31.8 g/dL (32.0-36.0); Mean Corpuscular Volume 95.3 fL (80.0-100.0); Mean Platelet Volume 9.4 fL (9.4-12.3); Platelet Count 181 K/uL (130-400); RDW Coefficient of Variation 14.1 % (11.5-14.5); RDW Standard Deviation 49.1 fL (36.4-46.3)
[2021-09-10 09:05] LABS: Anion Gap 5 (3-11); BUN Creatinine Ratio 27.2 (10-20); Blood Urea Nitrogen 31 mg/dl (6-23); Calcium 8.3 mg/dl (8.5-10.1); Carbon Dioxide 24 mmol/L (21-32); Chloride 110 mmol/L (98-107); Creatinine Clr Calc Pharmacy 54.7 ml/min; Est GFR (African American) 58.4 ml/min; Est GFR (Non-African American) 50.4 ml/min; Glucose 95 mg/dl (70-99(Fasting)); Sodium 139 mmol/L (136-145)
[2021-09-10] MEDS: ONDANSETRON INJ 2 MG/ML 2 ML VIAL IV PRN (11:58)
--- NOTE | 2021-09-11 08:11 | Discharge Summary ---
Date of Service date of discharge: September 10, 2021 date of admission: 09-08-21 Admission HPI Per Admitting Provider Lacy is a 66 y/o female who complains of left knee pain s/p left TKA on 09/27/[address] Ott. Post op she initially did well but beginning about a year out of her surgery had developed pain and swelling. she underwent labs on 05/12/20: ESR 44, CRP 1.4. She next underwent synovasure testing that was negative for infectious etiology. She also underwent bone scan on 05/07/20 that showed non specific increased bone phase activity adjacent to the tibial and patellar component. She underwent Iovera cryoneurolysis which did help mildly initially with her pain. 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 she did then undergo repeat Iovera without relief. after discussing further care, she would like to proceed with revision left TKA. her left total knee replacement is sizes: Left Total Knee Arthroplasty, Cemented(Left) utilizing journey to non-block total knee arthroplasty size 4 femur 3 tibia 9 polyethylene 29 oval patella Principal Diagnosis painful left total knee replacement Discharge Exam Musculoskeletal left knee: NVDI, calf SNT, negative anamaria sign. DP palpable, able to wiggle toes/ankle movement without difficulty. MITA dressing clean dry and intact. expected post-operative bruising noted. Discharge Data Allergies Allergy/AdvReac Type Severity Reaction Status Date / Time No Known Allergies Allergy Verified 09/08/21 05:45 Procedures Performed Operation Date: 09/08/21 07:00 Actual Procedures p Left Knee Total Revision Arthroplasty(Left) - Kirk Ott, Ordered Studies 09/08/21 05:00 US - OR guided needle placemen Routine Hospital Course (1) Painful total knee replacement, left: Postop day 2 status post left total knee arthroplasty revision. PT/OT protocols. Weightbearing as tolerated. Continue to monitor leg strength and application of immobilizer if she continues to have her left knee buckle. DVT prophylaxis-aspirin p.o. twice daily, SCDs, ARIEL turner. Pain management as written. Recheck labs. DC planning-patient is planning for home health services upon discharge Total Time Total Time Spent Total Time Spent (In Minutes): 20 Discharge Plan Discharge Items Patient Disposition: Home - Home Health Services Reason For Visit: painful left total knee replacement Discharge Diagnosis: revision left total knee replacement Activity: Per Instructions section Lifting: Wait until after follow-up appointment Weightbearing: Left non-weightbearing Weightbearing Comment: WBAT with walker Non-emergency contact: Surgeon Call non-emergency contact if: you have any medication questions, your temperature is above 101, your wound has increased redness, your wound has increased drainage and your wound pain has increased Follow-up/Referrals: Emerson Hill DO [Primary Care Provider] - Diet: Regular Ambulatory Orders: Basic Metabolic Panel (Routine) Timeframe: [id number] Location: Determined by Patient Ordered By: Stanislav Bernal Attending Provider Instructions: ACTIVITY RECOMMENDATIONS: SELF CARE INSTRUCTIONS AFTER TOTAL KNEE REPLACEMENT A. You may need to continue a physical therapy program after discharge from the hospital. There are several options available to you. Your doctor will assist you in selecting the best one for you. 1. An out-patient facility 2 to 3 times a week for therapy or home therapy. 2. Continue working on all exercises taught to you in the hospital. Your goals should be to increase bending of your knee to 90 degrees and beyond and to fully straighten your knee. B. You may progress at your own pace from walking with a walker or crutches to a cane; then to no assistive devices. C. Make walking a part of your daily routine. Be up as much as comfortable with rest periods throughout the day. Rest with leg elevation is very important. Use the ice wrap frequently for the first 3-4 weeks. D. There are no restrictions on activities. You may ride in a car, shop, participate in inventory analyst and all social activities. E. Wear the long elastic stockings (ARIEL hose) 20 hours a day for 2 weeks after surgery. They can be removed several times a day for laundering and for a bath. F. You may shower, no tub baths until cleared by your doctor. SPECIAL CARE INSTRUCTIONS: VERY IMPORTANT TO READ AND REVIEW A. There are a few signs you need to watch for after you are home. Call [facility] if you notice any of the followin. Increased severe knee pain. Some pain is expected especially when you exercise. 2. Increased swelling in your leg or knee; pain or swelling of the calf muscle in either lower leg. 3. Any fluid drainage from the incision. 4. Shortness of breath or chest pain. B. Please call [facility] at if you have any concerns or questions about your operation or recovery. The doctor or his nurse will return your call promptly. C. You must take antibiotics before dental work, bladder, bowel or other surgery. Your doctor will provide you with a permanent care to carry describing this precaution. IMPORTANT: * REMEMBER TO TAKE ASPIRIN, 81 MG, TWICE DAILY FOR 4 WEEKS UNLESS OTHERWISE DIRECTED. THIS IS YOUR BLOOD THINNER. * HIGH RISK PATIENTS MAY BE PRESCRIBED A STRONGER BLOOD THINNER. THIS WILL BE PROVIDED AT DISCHARGE. * CALL IF INCREASED PAIN, REDNESS, DRAINAGE OR FEVER GREATER THAT 101. * WEAR ARIEL HOSE 20 HOURS PER DAY FOR 2 WEEKS. * MITA Dressing- This is a large suction dressing covering your incision. This will help pull any excess drainage from the wound and allow your incision to heal properly. You may shower with this if you can keep the unit outside of the shower. If any bleeding or leakage is noted please call your doctor's office. This will remain on your incision for 7 days and then should be removed. This can be done yourself or by the home nursing staff if applicable. The entire unit is disposable once removed. Once removed, keep incision clean and dry. If redness or drainage is noted, please call your surgeon. ONCE MITA IS REMOVED, FOLLOW THESE INSTRUCTIONS: DERMABOND Prineo- This is a mesh tape dressing that is covered with glue. It should remain in place until the incision is properly healed, usually 10-14 days. This dressing is designed to naturally slough off. You may trim the excess mesh tape as it peels off. Incision may be briefly wet in a shower. Dry immediately by blotting with a clean, dry towel. Do not bath or swim until instructed by your doctor. Do not scratch, rub, or pick at the dressing. Do not apply any topical ointments or lotions until dressing is completely removed and/or instructed by your doctor. There may be a small piece of suture material at one end of your incision. Do not pull or trim this. If it is bothersome or catching on clothing, you may cover it with a band-aid. IF INCISION IS LEAKING THROUGH DRESSING, CALL THE OFFICE . FOLLOW UP VISIT: If appointment is not already scheduled: Please call [facility] to make a follow-up appointment for 2 weeks after your surgery at . Stand-Alone Forms: [facility] [employer], Smoking Cessation Medications and DC Order Prescriptions: New celecoxib [Celebrex] 200 mg Capsule 200 mg PO BID 14 Days Qty: 28 0RF aspirin 81 mg Tablet,Delayed Release (Dr/Ec) 81 mg PO BID 30 Days Qty: 60 0RF acetaminophen [Tylenol Extra Strength] 500 mg Tablet 1,000 mg PO Q8 14 Days Qty: 84 0RF oxycodone 5 mg tablet 5 mg PO Q4H MDD 6 PRN (Reason: pain) Qty: 30 0RF Continued ondansetron HCl 4 mg tablet 4 mg PO Q8H PRN (Reason: nausea and vomiting) Qty: 10 0RF sertraline [Zoloft] 100 mg Tablet 200 mg PO HS aripiprazole [Abilify] 10 mg Tablet 10 mg PO QPM meclizine 12.5 mg Tablet 12.5 mg PO QID PRN (Reason: Vertigo) Trelegy Ellipta 200-62.5-25 mcg Blister With Device 1 inh INHALATION QAM albuterol 90 mcg/actuation Aerosol 90 mcg INHALATION UD PRN (Reason: sob) Discontinued meloxicam 15 mg Tablet 15 mg PO QAM Discharge Orders: Discharge Order (Routine); Ordered 09/10/21 Ordered By: Stanislav Govea Admission Data Admit Date/Time: 09/09/21 09:28 Attending Provider: Kirk Ott Admit Provider: Kirk Ott Primary Care Provider: Emerson Hill Other Interventions: Discharge Summary Assessment (RN) Last Done: 09/10/21 11:31
== END 2021-09-10 15:29 | disposition home health service (06) | DRG 467 ==
LOC: ASU 05:20 → 3E 05:20